=== PATIENT | male | born 1940 | race Caucasian/White ===

== ENCOUNTER → 2017-09-13 | Outpatient (CLI) | payer OTHER ==
[~2017-09-13] MED LIST: AEC81 PO; ATOR20TA65 PO; CARV6.25 PO; CHLO-204 PO; DOCU-116 PO; FINA5TAB41 PO; LOSA50TA37 PO; OMEP40CA37 PO; PRAV20TA4 PO; TAMS0.4C32 PO; TYL3 PO
== END | disposition home or self-care (01) ==
LOC: RAH 11:21
PROVIDERS: ATTEND Internal Medicine
DX: J44.9 Chronic obstructive pulmonary disease, unspecified (principal)
CPT/HCPCS: 71046

== ENCOUNTER → 2021-10-26 | Outpatient (CLI) | payer OTHER ==
[~2021-10-26] MED LIST changes: -LOSA50TA37 PO; +LOSA50TA64 PO; +OMEP40CA21 PO; -OMEP40CA37 PO
== END | disposition home or self-care (01) ==
LOC: SHCH 14:08
PROVIDERS: ATTEND Internal Medicine Cardiovascular Disease
DX: I48.0 Paroxysmal atrial fibrillation (principal); R55 Syncope and collapse; E78.5 Hyperlipidemia, unspecified; I10 Essential (primary) hypertension; Z95.810 Presence of automatic (implantable) cardiac defibrillator
CPT/HCPCS: 93306; 93880

== ENCOUNTER → 2022-10-14 | Outpatient (CLI) | payer OTHER | END | disposition home or self-care (01) | LOC: RAH 11:31 | DX: M17.12 Unilateral primary osteoarthritis, left knee (principal); I11.0 Hypertensive heart disease with heart failure; M25.562 Pain in left knee; M25.561 Pain in right knee; D64.9 Anemia, unspecified; M85.88 Other specified disorders of bone density and structure, other site; M11.262 Other chondrocalcinosis, left knee ==

== ENCOUNTER 2024-12-25 05:12 | Emergency (ER) | payer OTHER ==
[~2024-12-25] VITALS: Ht 160 cm; Wt 71.7 kg
--- NOTE | 2024-12-25 06:45 | NUR ---
patient reported no longer having pain to right arm or numbness to right hand at this time
[2024-12-25 07:00] LABS: CREATININE 1.3 mg/dL (0.5-1.3); POTASSIUM 4.2 mmol/L (3.5-5.1)
[2024-12-25 07:01] LABS: BASOPHILS # (AUTO) 0.03 K/uL (0.00-0.20); BASOPHILS % (AUTO) 0.6 % (0.0-5.0); EOSINOPHILS # (AUTO) 0.05 K/uL (0.00-0.70); EOSINOPHILS % (AUTO) 0.9 % (0.0-8.0); HEMATOCRIT 36.4 % (42-54); IMMATURE GRANULOCYTE ABSOLUTE 0.02 K/uL (0-1); LYMPHOCYTES # (AUTO) 1.1 K/uL (1.0-4.8); LYMPHOCYTES % (AUTO) 21.4 % (21.0-51.0); MEAN CORPUSCULAR HEMOGLOBIN 31.8 pg (27.0-33.0); MEAN CORPUSCULAR HGB CONC 32.7 g/dL (32.0-36.0); MEAN CORPUSCULAR VOLUME 97.3 fL (79-99); MONOCYTES # (AUTO) 0.5 K/uL (0.1-1.0); MONOCYTES % (AUTO) 9.3 % (3.0-13.0); NEUTROPHILS # (AUTO) 3.6 K/uL (1.8-7.7); NEUTROPHILS % (AUTO) 67.4 % (40.0-77.0); PLATELET COUNT (AUTO) 114 K/uL (130-400); RED BLOOD CELL COUNT(AUTO) 3.74 MIL/uL (4.50-6.20); RED CELL DISTRIBUTION WIDTH 13.2 % (11.0-15.5); WHITE BLOOD COUNT (AUTO) 5.3 K/uL (4.8-10.8)
--- NOTE | 2024-12-25 08:32 | ERN ---
General Chief Complaint: Numbness Stated Complaint: C/O NUMBNESS TO RT ARM/HAND Time Seen by MD: 07:07 Source: patient History of Present Illness Initial Comments PATIENT IS A AN 84-YEAR-OLD MALE COMING IN WITH A RIGHT UPPER ARM PAIN. PER PATIENT WOKE UP WITH DISCOMFORT IN HIS RIGHT FOREARM. HE STATES THAT THE PAIN WAS ACCOMPANIED WITH WEAKNESS THIS SYMPTOMS LASTED FOR ABOUT 1-2 MINUTES. HE STATES THAT SHORTLY AFTER THAT SYMPTOMS RESOLVED ON THEIR OWN. CAME IN DUE TO THE CONCERNS THAT SON VASCULAR COMPLICATION MIGHT BE PRESENT. Allergies: Coded Allergies: No Known Drug Allergies (Unverified Allergy, Unknown, 10/28/15) Home Meds Active Scripts Acetaminophen with Codeine (Tylenol with Codeine #3) 1 Tab Tab, 1 TAB PO Q6H, #30 TAB 0 Refills Prov:ANGELA SINGLETARY MD 01/14/16 Reported Medications Omeprazole (Omeprazole) 40 Mg Capsule.dr, 40 MG PO DAILY, CAP 01/12/16 Atorvastatin Calcium (Atorvastatin Calcium) 20 Mg Tablet, 20 MG PO HS, TAB 01/12/16 Carvedilol (Carvedilol) 6.25 Mg Tablet, 6.25 MG PO BID, TAB 01/12/16 Finasteride (Finasteride) 5 Mg Tablet, 0.5 TAB PO QODAY, TAB 01/12/16 Aspirin (ASPIRIN 81 MG ECTAB) 81 Mg Ectab, 81 MG PO DAILY, TAB.EC 10/28/15 Docusate Sodium (Colace) 100 Mg Capsule, 100 MG PO BID, CAP 10/28/15 Chlorpheniramine Maleate (Chlortabs) 4 Mg Tablet, 4 MG PO HS, TAB 10/28/15 Tamsulosin HCl (Tamsulosin HCl) 0.4 Mg Cap.er.24h, 0.4 MG PO HS, CAPSULE. 10/28/15 Losartan Potassium (Losartan Potassium) 50 Mg Tablet, 50 MG PO BID, TAB 10/28/15 Pravastatin Sodium (Pravastatin Sodium) 20 Mg Tablet, 20 MG PO HS, TAB 10/28/15 Past Medical History Past Medical History: Hypertension Past Surgical History: Unknown ROS Dictation CONSTITUTIONAL: NO CHILLS, NO FEVER, NO WEAKNESS, NO DIAPHORESIS, NO MALAISE. HEAD/FACE: NO SIGNS OF TRAUMA. EENT: NO EYE PAIN, NO BLURRED VISION, NO TEARING, NO DOUBLE VISION, NO EAR PAIN, NO EAR DISCHARGE, NO NOSE PAIN, NO NASAL CONGESTION, NO THROAT PAIN, NO THROAT SWELLING, NO MOUTH PAIN. RESPIRATORY: NO COUGH, NO ORTHOPNEA, NO SOB, NO STRIDOR, NO WHEEZING. CARDIOVASCULAR: NO CHEST PAIN, NO EDEMA, NO PALPITATIONS, NO SYNCOPE. GASTROINTESTINAL/ABDOMINAL: NO ABDOMINAL PAIN, NO CONSTIPATION, NO DIARRHEA, NO NAUSEA, NO VOMITING. GENITOURINARY: NO ABNORMAL DISCHARGE, NO DYSURIA, NO FREQUENT URINATION, NO HEMATURIA. NO COMPLAINTS OF PAIN IN THE GENITALS. MUSCULOSKELETAL: NO BACK PAIN, NO GOUT, NO JOINT PAIN, NO JOINT SWELLING, NO MUSCLE PAIN, NO MUSCLE STIFFNESS, NO NECK PAIN. INTEGUMENTARY: NO CHANGE IN COLOR, NO CHANGE IN HAIR/NAILS, NO DRYNESS, NO LESION, NO LUMPS, NO RASH. NEUROLOGICAL/PSYCH: NO ANXIETY, NOT DEPRESSED, NO EMOTIONAL PROBLEM, NO HEADACHE, NO NUMBNESS, NO PRE-EXISTING DEFICIT, NO HISTORY OF SEIZURES, NO TREMORS, NO WEAKNESS. HEMATOLOGIC/LYMPHATIC: NOT ANEMIC, NO HISTORY OF BLOOD CLOTS, NO APPARENT BLEEDING, NO BRUISING, GLANDS NOT SWOLLEN. ALL SYSTEMS NEGATIVE, EXCEPT NOTED. Physical Exam Physical Exam Dictation VITAL SIGNS: REVIEWED. GENERAL APPEARANCE: ALERT, ORIENTED X3, NO ACUTE DISTRESS, OBESE. HEAD AND FACE: NON-TRAUMATIC. EYES: PERRL, PINK CONJUNCTIVAS, EYELID NO TRAUMA, ANTERIOR CHAMBER CLEAR. EARS: PINNAS INTACT AND NO SIGNS OF TRAUMA OR ERYTHEMA. EAR CANALS CLEAR AND NO DISCHARGE. TMS NO ERYTHEMA. NOSE: NO DISCHARGE, NO BLEEDING. OROPHARYNX: MOUTH NORMAL, TEETH NO CARIES, TONGUE PINK. PHARYNX CLEAR, NO ERYTHEMA. TONSILS NO EXUDATES, NO ABSCESSES NOTED. MUCOUS MEMBRANE MOIST. NECK: SUPPLE, NON-TENDER, NO THYROMEGALY, NO MASSES, NO JVD, NO BRUITS. BREAST: DEFERRED. CHEST: NO TENDERNESS, NO CREPITUS, NO PARADOXICAL MOVEMENT, NO RETRACTIONS. LUNGS: CLEAR, WELL-VENTILATED, SYMMETRIC, NO RALES, NO WHEEZING, NO RHONCHI, NO STRIDOR, GOOD BREATH SOUNDS BILATERALLY. HEART: REGULAR RATE, REGULAR RHYTHM, NO MURMUR, NO GALLOPS. VASCULAR: NO PERIPHERAL EDEMA. ABDOMEN: SOFT, POSITIVE BOWEL SOUNDS, NONDISTENDED, NO GUARDING, NONTENDER, NO REBOUND, NO MASSES NO HEPATOMEGALY, NO SPLENOMEGALY, NO VASQUEZ'S SIGN, NO H ERNIAS. RECTAL: DEFERRED. GENITAL: DEFERRED. NEUROLOGICAL: NORMAL SPEECH, GROSS MOTOR FUNCTION INTACT, GROSS SENSORY FUNCTI ON INTACT. MUSCULOSKELETAL: NECK NONTENDER, FULL RANGE OF MOTION, BACK NONTENDER, FULL RANGE OF MOTION. EXTREMITIES: NONTENDER, FULL RANGE OF MOTION. SKIN: COLOR PINK, DRY, NO TURGOR, NO RASH, NO LACERATIONS, NO ABRASIONS, NO CONTUSIONS. LYMPHATICS: DEFERRED. Results Laboratory and Microbiology Lab and Micro Result Laboratory Tests Test 12/25/24 06:44 White Blood Count 5.3 K/uL (4.8-10.8) Red Blood Count 3.74 MIL/uL (4.50-6.20) L Hemoglobin 11.9 g/dL (14.0-18.0) L Hematocrit 36.4 % (42-54) L Mean Corpuscular Volume 97.3 fL (79-99) Mean Corpuscular Hemoglobin 31.8 pg (27.0-33.0) Mean Corpuscular Hemoglobin Concent 32.7 g/dL (32.0-36.0) Red Cell Distribution Width 13.2 % (11.0-15.5) Platelet Count 114 K/uL (130-400) L Mean Platelet Volume 10.5 fL (7.5-10.5) Immature Granulocyte % (Auto) 0.4 % (0-1) Neutrophils (%) (Auto) 67.4 % (40.0-77.0) Lymphocytes (%) (Auto) 21.4 % (21.0-51.0) Monocytes (%) (Auto) 9.3 % (3.0-13.0) Eosinophils (%) (Auto) 0.9 % (0.0-8.0) Basophils (%) (Auto) 0.6 % (0.0-5.0) Neutrophils # (Auto) 3.6 K/uL (1.8-7.7) Lymphocytes # (Auto) 1.1 K/uL (1.0-4.8) Monocytes # (Auto) 0.5 K/uL (0.1-1.0) Eosinophils # (Auto) 0.05 K/uL (0.00-0.70) Basophils # (Auto) 0.03 K/uL (0.00-0.20) Absolute Immature Granulocyte (auto 0.02 K/uL (0-1) Nucleated Red Blood Cells 0.0 % (0.0-0.19) Sodium Level 141 mmol/L (136-145) Potassium Level 4.2 mmol/L (3.5-5.1) Chloride Level 106 mmol/L (101-111) Carbon Dioxide Level 26 mmol/L (21-32) Blood Urea Nitrogen 25 mg/dL (7-18) H Creatinine 1.3 mg/dL (0.5-1.3) Glomerular Filtration Rate Calc 54 mL/min (>90) Random Glucose 86 mg/dL (70-105) Total Calcium 8.7 mg/dL (8.5-10.1) Labs Reviewed?: Yes MDM MDM: DIFFERENTIAL DIAGNOSIS: TENDONITIS, CELLULITIS, TEMPORARY PARALYSIS, ARM ASLEEP, NERVE COMPRESSION, TEMPORARY NERVE IRRITATION RATIONALE: TESTS CONSIDERED AND ORDERED SECONDARY TO SHARED DECISION MAKING INCLUDE: PREVIOUS OUTSIDE RECORDS REVIEWED: OLD ER VISITS. RISK OF COMPLICATION AND/OR MORBIDITY OR MORTALITY OF PATIENT MANAGEMENT: NONE PATIENT IS A AN 84-YEAR-OLD MALE COMING IN TO BE EVALUATED FOR RIGHT ARM PAIN. HE STATES THAT THE PAIN WAS TRANSIENT LASTING ABOUT 1-2 MINUTES ALONG WITH THIS PATIENT STATES THAT HE WAS NOT ABLE TO EXTEND HIS HAND. THESE SYMPTOMS RESOLVED ON THEIR OWN. LABORATORY WORKUP INCLUDING CT OF THE SPINE WERE NEGATIVE FOR ACUTE FINDINGS. THROUGHOUT ER VISIT PATIENT HAS BEEN STABLE. ON PHYSICAL EXAM PATIENT WAS ABLE TO MOVE SENSATION IS INTACT REFLEXES INTACT. I DID ADVISED HIM APPROPRIATE FOLLOW UP WITH PCP MEDICATION FOR MUSCULAR INFLAMMATION WILL BE PROVIDED. ED Course Orders Procedure Category Date Status Time Cbc With Differential LAB 12/25/24 Complete 06: Basic Metabolic Panel LAB 12/25/24 Complete 06: Ct Cervical Spine W/O CT 12/25/24 Taken Contrast 06:23 Vital Signs Date Time Temp Pulse Resp B/P (MAP) Pulse Ox O2 Delivery O2 Flow Rate FiO2 12/25/24 08:00 97.9 65 18 135/85 95 Room Air* 0 21 12/25/24 06:11 97.2 61 18 134/84 99 Room Air* 0 21 12/25/24 05:17 96.4 50 20 164/92 97 Room Air DX & DISP Disposition: Discharge Departure Impression: Primary Impression: Tendinitis Condition: Stable Scripts Diclofenac Sodium (Voltaren Arthritis Pain) 1 % Gel..gram. 4 GM TP BID for 7 Days, #1 TUBE Prov: CLIFFORD FABIAN MD 12/25/24 Additional Instructions: FOLLOW-UP WITH PRIMARY CARE PROVIDER IN 1 TO 2 DAYS. TAKE MEDICATIONS DIRECTED HERE IN THE EMERGENCY ROOM. OKAY TO CONTINUE HOME MEDICATIONS UNLESS OTHERWISE DISCUSSED DURING YOUR VISIT IN THE EMERGENCY ROOM TODAY. RETURN TO YOUR NEAREST EMERGENCY ROOM IF SYMPTOMS WORSEN OR IF THERE IS NO IMPROVEMENT. CALL 911 IF YOU NEED IMMEDIATE ASSISTANCE. TAKE TYLENOL [id number] NEEDED AND IF NO CONTRAINDICATIONS ARE PRESENT. INCREASE ORAL HYDRATION. A WOUND CULTURE OR URINE CULTURE WAS ORDERED HERE IN THE EMERGENCY ROOM DEPARTMENT PLEASE FOLLOW-UP WITH PRIMARY CARE PROVIDER AND ADVISE THEM TO GET REPEAT PORTS FROM OUR FACILITY. IF YOU HAD ANY JOLENE WRAP/SPLINTS THAT WERE APPLIED HERE, PLEASE DO NOT REMOVE THEM UNTIL YOU SEE YOUR PRIMARY CARE OR SPECIALTY. REFERRALS: Referrals: BRIGITTE COLEMAN MD (PCP) Time of Disposition: 08:48 CLIFFORD FABIAN MD Dec 25, 2024 08:32
[2024-12-25] MEDS ORDERED: DICL20GE TP (08:48)
--- NOTE | 2024-12-25 09:06 | HMCIMG ---
Exam Type: CT cervical spine without contrast Clinical Information: right upper extremeity numbness and tingling Comparison: None Technique: Spiral axial images were performed from the base of the skull down to the thoracic vertebral bodies. Both sagittal and coronal reconstructions were performed. CT Dose Index (CTDI): 12.85 mGy Dose Length Product (DLP): 282.6 total Findings: There are degenerative changes. Degenerative disc disease is noted at multiple levels. There is adequate alignment and preservation of normal cervial lordosis. There is facet hypertrophy at multiple levels. IMPRESSION: Degenerative changes as noted. No acute pathology. No fractures seen. This study was performed using dose reduction techniques to include automated exposure control and/or adjustment of the mA and/or kV according to patient size.
[2024-12-25 09:28] VITALS: BP 164/84; PULSE 56; RESP 18; TEMP 97.7; O2SAT 98
== END 2024-12-25 09:33 | disposition home or self-care (01) ==
LOC: EDH 05:12
DX: M77.9 Enthesopathy, unspecified (principal); I10 Essential (primary) hypertension; Z79.82 Long term (current) use of aspirin; Z79.899 Other long term (current) drug therapy
CPT/HCPCS: 36415; 72125; 80048; 85025; 99284

== ENCOUNTER → 2025-01-13 | Outpatient (CLI) | payer OTHER ==
[~2025-01-13] MED LIST changes: +DICL20GE TP
--- NOTE | 2025-01-13 10:47 | HMCIMG ---
Exam Type: US ABDOMINAL COMPLETE Clinical Information: abdominal distension (gaseous), also known as bloating Comparison: None Findings: The liver shows normal echogenicity and is otherwise unremarkable. The liver measures less than 16 cm in length. Doppler evaluation shows patent portal and hepatic veins. The gallbladder shows no significant abnormalities. Specifically, no calculi are seen. The gallbladder wall thickness is 2 mm. No bile duct dilatation is noted. The common bile duct measures 4 mm. The right kidney measures 9.5 x 4.9 cm. The left kidney measures 10.3 x 3 .9 cm. The kidneys are normal in size and echogenicity. No hydronephrosis or renal calculi are seen. There are no renal masses. The pancreas is unremarkable. The spleen is unremarkable. The aorta and inferior vena cava show no significant abnormalities. IMPRESSION: Normal exam.
== END | disposition home or self-care (01) ==
LOC: RAH 07:47
PROVIDERS: ATTEND Internal Medicine
DX: R14.0 Abdominal distension (gaseous) (principal); D69.6 Thrombocytopenia, unspecified
CPT/HCPCS: 76700

== ENCOUNTER 2025-02-18 03:49 | Inpatient (IN) | payer OTHER ==
[~2025-02-18] VITALS: Ht 157.5 cm; Wt 91.8 kg
[~2025-02-18 03:49] MED LIST changes: -PRAV20TA4 PO; +PRAV20TA59 PO
[2025-02-18 04:36] LABS: BASOPHILS # (AUTO) 0.03 K/uL (0.00-0.20); BASOPHILS % (AUTO) 0.4 % (0.0-5.0); EOSINOPHILS # (AUTO) 0.02 K/uL (0.00-0.70); EOSINOPHILS % (AUTO) 0.3 % (0.0-8.0); HEMATOCRIT 40.5 % (42-54); IMMATURE GRANULOCYTE ABSOLUTE 0.03 K/uL (0-1); LYMPHOCYTES # (AUTO) 1.7 K/uL (1.0-4.8); LYMPHOCYTES % (AUTO) 21.5 % (21.0-51.0); MEAN CORPUSCULAR HEMOGLOBIN 32.3 pg (27.0-33.0); MEAN CORPUSCULAR HGB CONC 33.1 g/dL (32.0-36.0); MEAN CORPUSCULAR VOLUME 97.6 fL (79-99); MONOCYTES # (AUTO) 0.6 K/uL (0.1-1.0); MONOCYTES % (AUTO) 7.8 % (3.0-13.0); NEUTROPHILS # (AUTO) 5.3 K/uL (1.8-7.7); NEUTROPHILS % (AUTO) 69.6 % (40.0-77.0); PLATELET COUNT (AUTO) 119 K/uL (130-400); RED BLOOD CELL COUNT(AUTO) 4.15 MIL/uL (4.50-6.20); RED CELL DISTRIBUTION WIDTH 13.5 % (11.0-15.5); WHITE BLOOD COUNT (AUTO) 7.7 K/uL (4.8-10.8)
[2025-02-18 04:46] LABS: POTASSIUM 4.5 mmol/L (3.5-5.1)
--- NOTE | 2025-02-18 04:57 | ERN ---
General Chief Complaint: Palpitations Stated Complaint: C/O PALPITATIONS WITH SOB Time Seen by MD: 04:28 Source: family History of Present Illness Initial Comments Patient is an 84-year-old male with a history of heart disease with a pacemaker who comes in because of worsening palpitations over the last 24 hours. Associated with the palpitations as a shortness of breath especially when he lies down. He does not have chest pain or any upper respiratory tract symptoms. No fevers no urinary or GI symptoms. Timing/Duration: 24 hours Severity: moderate Allergies: Coded Allergies: No Known Drug Allergies (Unverified Allergy, Unknown, 10/28/15) Home Meds Active Scripts Diclofenac Sodium (Voltaren Arthritis Pain) 1 % Gel..gram., 4 GM TP BID for 7 Days, #1 TUBE Prov:CLIFFORD FABIAN MD 12/25/24 Acetaminophen with Codeine (Tylenol with Codeine #3) 1 Tab Tab, 1 TAB PO Q6H, #30 TAB 0 Refills Prov:ANGELA SINGLETARY MD 01/14/16 Reported Medications Omeprazole (Omeprazole) 40 Mg Capsule.dr, 40 MG PO DAILY, CAP 01/12/16 Atorvastatin Calcium (Atorvastatin Calcium) 20 Mg Tablet, 20 MG PO HS, TAB 01/12/16 Carvedilol (Carvedilol) 6.25 Mg Tablet, 6.25 MG PO BID, TAB 01/12/16 Finasteride (Finasteride) 5 Mg Tablet, 0.5 TAB PO QODAY, TAB 01/12/16 Aspirin (ASPIRIN 81 MG ECTAB) 81 Mg Ectab, 81 MG PO DAILY, TAB.EC 10/28/15 Docusate Sodium (Colace) 100 Mg Capsule, 100 MG PO BID, CAP 10/28/15 Chlorpheniramine Maleate (Chlortabs) 4 Mg Tablet, 4 MG PO HS, TAB 10/28/15 Tamsulosin HCl (Tamsulosin HCl) 0.4 Mg Cap.er.24h, 0.4 MG PO HS, CAPSULE.DR 10/28/15 Losartan Potassium (Losartan Potassium) 50 Mg Tablet, 50 MG PO BID, TAB 10/28/15 Pravastatin Sodium (Pravastatin Sodium) 20 Mg Tablet, 20 MG PO HS, TAB 10/28/15 Past Medical History Past Medical History: Heart Disease, Hypertension Past Surgical History: Pacer/AICD Constitutional: (-) chills, (-) diaphoresis, (-) fever, (-) malaise, (-) weakness, (-) other documentation EENTM: (-) eye pain, (-) blurred vision, (-) tearing, (-) double vision, (-) ear pain, (-) ear discharge, (-) nose pain, (-) nose congestion, (-) throat pain, (-) Throat swelling, (-) mouth pain, (-) tooth pain, (-) mouth swelling, (-) other documentation Respiratory: (+) cough Cardiovascular: (-) chest pain, (-) edema, (-) palpitations, (-) syncope, (-) dyspnea on exertion, (-) other documentation Gastrointestinal/Abdominal: (-) nausea, (-) vomiting, (-) diarrhea, (-) abdominal pain, (-) abdominal distention, (-) constipation, (-) rectal bleeding, (-) dark stool/melena, (-) other documentation Musculoskeletal: (-) Neck pain, (-) back pain, (-) Flank Pain, (-) joint pain, (-) joint swelling, (-) muscle pain, (-) muscle stiffness, (-) gout, (-) other documentation Neuro: (-) altered mental status, (-) headache, (-) syncope, (-) paralysis, (-) numbness, (-) seizure, (-) pre-existing deficit, (-) tremors, (-) weakness, (-) dizziness, (-) slurred speech, (-) vertigo, (-) other documentation Physical Exam General Appearance: (+) no apparent distress Orientation: (+) alert Head/Face Trauma: No Eye: bilateral eye normal inspection, bilateral eye PERRL, bilateral eye EOMI Ear, Nose, Throat: (+) hearing grossly normal, (+) normal ENT inspection Neck: (+) normal inspection, (+) supple, (+) full range of motion Respiratory: (+) chest non-tender, (+) lungs clear, (+) well ventilated Heart: (+) regular, (+) no gallop Vascular: (+) no edema, (+) normal peripheral pulse Gastrointestinal: (+) soft, (+) non-tender, (+) bowel sound present Results Laboratory and Microbiology Lab and Micro Result Laboratory Tests Test 02/18/25 04:13 02/18/25 04:45 White Blood Count 7.7 K/uL (4.8-10.8) Red Blood Count 4.15 MIL/uL (4.50-6.20) L Hemoglobin 13.4 g/dL (14.0-18.0) L Hematocrit 40.5 % (42-54) L Mean Corpuscular Volume 97.6 fL (79-99) Mean Corpuscular Hemoglobin 32.3 pg (27.0-33.0) Mean Corpuscular Hemoglobin Concent 33.1 g/dL (32.0-36.0) Red Cell Distribution Width 13.5 % (11.0-15.5) Platelet Count 119 K/uL (130-400) L Mean Platelet Volume 11.0 fL (7.5-10.5) H Immature Granulocyte % (Auto) 0.4 % (0-1) Neutrophils (%) (Auto) 69.6 % (40.0-77.0) Lymphocytes (%) (Auto) 21.5 % (21.0-51.0) Monocytes (%) (Auto) 7.8 % (3.0-13.0) Eosinophils (%) (Auto) 0.3 % (0.0-8.0) Basophils (%) (Auto) 0.4 % (0.0-5.0) Neutrophils # (Auto) 5.3 K/uL (1.8-7.7) Lymphocytes # (Auto) 1.7 K/uL (1.0-4.8) Monocytes # (Auto) 0.6 K/uL (0.1-1.0) Eosinophils # (Auto) 0.02 K/uL (0.00-0.70) Basophils # (Auto) 0.03 K/uL (0.00-0.20) Absolute Immature Granulocyte (auto 0.03 K/uL (0-1) Nucleated Red Blood Cells 0.0 % (0.0-0.19) Sodium Level 142 mmol/L (136-145) Potassium Level 4.5 mmol/L (3.5-5.1) Chloride Level 106 mmol/L (101-111) Carbon Dioxide Level 29 mmol/L (21-32) Blood Urea Nitrogen 25 mg/dL (7-18) H Creatinine 1.0 mg/dL (0.5-1.3) Glomerular Filtration Rate Calc 74 mL/min (>90) Random Glucose 94 mg/dL (70-105) Total Calcium 8.9 mg/dL (8.5-10.1) Troponin I High Sensitivity 38 ng/L (4-75) B-Type Natriuretic Peptide 688 pg/mL (0-100) H Influenza Type A Antigen Negative For Type A Influenza Type B Antigen Negative For Type B SARS-CoV-2 Antigen (Rapid) PRESUMPTIVE NEGATIVE Group A Streptococcus Rapid negative (NEGATIVE) MDM MDM: Differential diagnosis: Atrial fibrillation, sinus tach, malfunctioning pacemaker electrolyte disturbances fluid overload, CHF Rationale: Tests considered and ordered secondary to shared decision making include: Previous outside records reviewed: Old ER visits. Risk of complication and/or morbidity or mortality of patient management: None Medications-Per medication reconciliation Need for hospitalization: Patient does meet criteria for hospitalization. Need for emergency major/minor surgery: No There are no social concerns with this patient. Prescription drug management Prescriptions will include symptomatic care Patient's prior external medical records from other ER visits were reviewed by me as indicated. Prior testing and results from previous visits were reviewed. Prior tests were taken into account with medical decision making and resource utilization, independent historian/historians were used to obtain complete medical history. I will obtain an EKG, plus a rhythm strip. I will also check a BNP troponins chemistry CBC chest x-ray. I independently interpreted the test that were performed, results were reviewed by me and considered findings on radiology if ordered. Patient's chest x-ray is showing a lot of excess fluid and infiltrates. His BNP is quite high. Also his cardiac rhythm seems to shift back and forth a variety of rhythms some of which appear paced some of which appear not to be a paced beat. I have called the hospitalist and they have agreed to take him onto their servic e. ED Course Orders Procedure Category Date Status Time 12 Lead Ekg Tracing- EKG 02/18/25 Complete Technical 04:02 Cbc With Differential LAB 02/18/25 Complete 04:08 Basic Metabolic Panel LAB 02/18/25 Complete 04:08 Troponin I High LAB 02/18/25 Complete Sensitivity 04:08 B-Type Natriuretic LAB 02/18/25 Complete Peptide 04:08 Chest 1vw RAD 02/18/25 Taken 04:08 12 Lead Ekg Tracing- EKG 02/18/25 Complete Technical 04:28 Covid19 (Sars Antigen LAB 02/18/25 Complete Rapid) 04:28 Influenza Type A & B, LAB 02/18/25 Complete Rapid 04:28 Rapid (Group A Strep) LAB 02/18/25 Complete 04:28 Vital Signs Date Time Temp Pulse Resp B/P (MAP) Pulse Ox O2 Delivery O2 Flow Rate FiO2 02/18/25 05:43 87 20 15/98 96 Room Air* 0 02/18/25 04:19 97.0 93 18 154/99 95 Room Air* 0 21 02/18/25 03:51 96.1 89 20 145/95 96 Room Air DX & DISP Disposition: Inpatient Departure Impression: Primary Impression: CHF (congestive heart failure) Condition: Stable Referrals: BRIGITTE COLEMAN MD (PCP) SELENA FARIRS MD Feb 18, 2025 04:57
[2025-02-18 05:01] LABS: B-TYPE NATRIURETIC PEPTIDE 688 pg/mL (0-100)
[2025-02-18 05:12] LABS: RAPID GROUP A STREP negative (NEGATIVE)
[2025-02-18 05:21] LABS: COVID19 (SARS ANTIGEN RAPID) PRESUMPTIVE NEGATIVE (NEGATIVE); INFLUENZA TYPE A Negative For Type A (NEGATIVE); INFLUENZA TYPE B Negative For Type B (NEGATIVE)
--- NOTE | 2025-02-18 06:32 | EKG ---
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
--- NOTE | 2025-02-18 06:32 | EKG ---
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
[2025-02-18] MEDS ORDERED: ZOLPidem TARTrate 5 MG TAB PO PRN (07:00)
[2025-02-18] MEDS ORDERED: ondanSETRON 4MG INJ IV PRN (07:00)
[2025-02-18] MEDS ORDERED: PoTASSium chloRIDE 20MEQ ER 20 MEQ ERTAB PO PRN (07:00)
[2025-02-18] MEDS ORDERED: morPHINE 2 MG SYG IVP PRN (07:00)
[2025-02-18] MEDS ORDERED: acetaMINOPHEN 325 MG TAB PO PRN ×3 (07:00)
[2025-02-18] MEDS ORDERED: ketOROlac 15MG/ML VIAL (15MG/ML) IV PRN (07:00)
[2025-02-18] MEDS ORDERED: DEXTROSE 50%-WATER 50 ML DISP.SYRIN IV PRN (07:00)
[2025-02-18] MEDS ORDERED: hydrALAZine 20MG/ML VIAL IV PRN (07:00)
[2025-02-18] MEDS ORDERED: PoTASSium chl 10% ELIXIR 20MEQ 20 MEQ/15 ML UDCUP PO PRN (07:00)
[2025-02-18] MEDS ORDERED: LACTULOSE 20 GM/30 ML UDCUP PO PRN (07:00)
[2025-02-18] MEDS ORDERED: PoTASSium chloRIDE 10MEQ/100ML 100 ML IV PRN (07:00)
[2025-02-18] MEDS ORDERED: NITROGLYCERIN 0.4 MG SL TAB SL PRN (07:00)
[2025-02-18] MEDS ORDERED: GLUCAGON 1MG KIT 1 MG ML IM PRN (07:00)
[2025-02-18] MEDS ORDERED: FAMOTIDINE 20MG VIAL IV PRN (07:00)
[2025-02-18] MEDS ORDERED: guaiFENesin-DM 200/20MG 10ML PO PRN (07:00)
[2025-02-18] MEDS ORDERED: MAG/ALUM/SIMETH 30 ML UDCUP PO PRN (07:00)
[2025-02-18] MEDS ORDERED: DiphenhydrAMINE HCL 50 MG/ML VIAL IV PRN (07:00)
[2025-02-18] MEDS ORDERED: MONT-39 PO (07:20)
[2025-02-18] MEDS ORDERED: LOSA100T59 PO (07:20)
[2025-02-18] MEDS ORDERED: LORA10TA7 PO (07:20)
[2025-02-18] MEDS: INSULIN humuLIN R 100 UNIT/ML 3ML SQ SCH (07:30)
[2025-02-18] MEDS ORDERED: IOHEXOL-350 75 ML VIAL IV ONE (08:22)
--- NOTE | 2025-02-18 08:38 | NUR ---
CALLED AND SPOKE TO KAYLA FROM [employer] FOR INTEROGATION OF DEVICE, STATED HE WILL CALL NEARBY REP, PATIENT RESTING IN BED, CALL LIGHT IN REACH
[2025-02-18] MEDS: HEParin 5,000 UNIT VIAL SQ SCH (08:56)
[2025-02-18] MEDS: FAMOTIDINE 20MG VIAL IV SCH (08:56)
[2025-02-18] MEDS: furoSEMIDE 40MG VIAL IVP SCH (08:59)
--- NOTE | 2025-02-18 09:25 | NUR ---
DCP: HOME Pt states he is living independently at home with his Kiara Terry [phone]. Pt reports he is able to complete his ADLS on his own, is active and drives, uses no DME or in home care services. PCP is Margarette Sims and uses [facility] for rx needs. Pt denies dc needs and will return home at [place]n. Addendum: 02/18/25 at 0927 by NICHOLE NOEL SS Amended: Links added.
--- NOTE | 2025-02-18 10:06 | HMCIMG ---
CT CHEST PE PROTOCOL WWO CONT HISTORY: Pulmonary embolism COMPARISON: None TECHNIQUE: CT angiography of the chest was performed. The study was performed using angiographic technique with maximum intensity projection reconstruction images. Patient was given 75 cc of Omnipaque through intravenous route. FINDINGS: No CT evidence of filling defect is seen to suggest pulmonary embolus. No CT evidence of aortic dissection is seen. No evidence of parenchymal disease is seen. There are small bilateral pleural effusions with right more than left. The heart is enlarged. No evidence of adrenal mass is seen. Degenerative changes of the spine are noted. IMPRESSION: 1. No CT evidence of acute pulmonary embolus is seen. Small bilateral pleural effusions with right more than left. CT was performed with one or more following dose reduction techniques: automated exposure control, adjustment of the mA and kv according to patient's size, or use of a iterative reconstruction technique.
--- NOTE | 2025-02-18 11:16 | NUR ---
HOME MEDS ENTERED, PATIENT STATED ONLY 1 MISSING WAS CARVEDILOL 6.25MG PO PATIENT RESTING IN BED, CALL LIGHT IN REACH
--- NOTE | 2025-02-18 11:57 | NUR ---
PATIENT STATES HE IS NOT DIABETIC
[2025-02-18] MEDS: carVEDIlol 6.25 MG TABLET PO SCH (12:04)
--- NOTE | 2025-02-18 12:09 | CONS ---
[facility] CARDIOLOGY CONSULTATION REPORT Date Patient Seen: Feb 18, 2025 Time of Visit: 11:46 Requesting Physician: Karl Lopez MD Reason for Consultation: CHF, assess for malfunction of AICD History of Present Illness: This is an 84-year-old [place] male with a past medical history of hypertension, hyperlipidemia, BPH, normal coronary arteries by prior cardiac catheterization 2015, chronic left bundle branch block, and nonischemic cardiomyopathy with an LVEF of 35-40% by prior assessment, prior [place] [employer] AICD placement in 2015 (pacemaker dependent), paroxysmal atrial fibrillation currently not on anticoagulation (unclear reasons) presented to the emergency department with a 4 day history of 2 pillow orthopnea and PND in ad dition he was having dyspnea on exertion with the associated palpitations at less than 50 ft of ambulation. He denies any chest pain or pressure, denied any dizziness, near-syncope or syncope. He admits that he has been out of his carvedilol (carvedilol 6.25 mg p.o. b.i.d.) over the last 3 days. He also reports he has not been on any diuretic therapy in the past. He was recently re-evaluated at the office of Dr. Collado 01/08/2025 after several years of being absent from cardiology follow-up. During that visit, he was prescribed Xarelto but the patient does not recall this medication. In the emergency department, his EKG demonstrated a ventricular paced rhythm with underlying atrial fibrillation at a rate of 92 beats per minute. His BNP was 688. D-dimer was [address] scan of the chest PE protocol demonstrated no evidence of pulmonary embolism. There were bilateral pleural effusions right greater than left. In addition, his chest x-ray also demonstrated prior AICD placement and CHF changes. Cardiology consult was requested. He has been initiated on an IV Lasix diuresis and has already diuresed over 1 L since arriving to the ER. He denies any AICD firings. The patient also noticed at recently he would become more fatigue with his work-related activities (they have a [employer] business), with associated dyspnea and intermittent palpitations. Past Medical History: Nonischemic cardiomyopathy Normal coronary arteries by prior catheterization 2015 Chronic left bundle branch block [place] [employer] biventricular AICD placed in 2015 Pacemaker dependent Paroxysmal atrial fibrillation previously on Xarelto 2D echocardiogram October 2021 LVEF of 35-40% 01/08/2025 Hypertension Hyperlipidemia BPH Allergic rhinitis Past Surgical History: Bilateral cataract extraction Bilateral inguinal hernia repair and umbilical hernia repair Family History: Noncontributory Social History: The patient is . Lives with spouse. 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 Habits: Non smoker. Denies alcohol consumption. Denies illicit drug use Home Meds: Clonazepam ? dos, half a tablet daily Losartan 100 mg daily Aspirin 81 mg daily Atorvastatin 20 mg daily Finasteride 5 mg daily Montelukast 10 mg daily Tamsulosin 0.4 mg daily Review of Systems: CONST: No fever, fatigue, or weight changes. EYES: No recent vision problems. ENT: No congestion, ear pain, or sore throat. C/V: Positive for orthopnea, PND and palpitations. No chest pain, pressure, dizziness, near-syncope or syncope. No pedal edema. RESP: No cough, congestion, wheezing or shortness of breath. GI: No abdominal pain, nausea, vomiting, constipation, or diarrhea. : No incontinence or dysuria. SKIN: No rash. NEURO: No headache, focal numbness or weakness, dizziness, or seizures. PSYCH: No depression or anxiety. HEME: No abnormal bruising or bleeding. LYMPH: No swollen glands. Physical Examination: GENERAL: No acute distress. HEAD: Normal with no signs of head trauma. EYES: PERRLA, EOMI, conjunctiva and sclera normal. ENT: Hearing grossly intact, normal oropharynx. NECK: Supple without JVD. There is no tenderness, lymphadenopathy, or masses. No thyromegaly. Normal carotid upstrokes without bruits. LUNGS: Rales and Diminished breath sounds at the right base, no audible wheezing or rhonchi. HEART: Irregularly irregular underlying rhythm. Normal S1 and S2 without murmurs, gallop or rub. VASC: Peripheral pulses +2 bilaterally. ABD: Bowel sounds normal, soft, nontender, no masses, no organomegaly. No audible bruits. : Not examined LYMPH: No lymphadenopathy noted. EXT: No clubbing, cyanosis or edema. SKIN: No rashes or lesions noted. NEURO: Awake, alert, and oriented x3. No focal sensory or strength deficits noted. Vital Signs (last 8hr) Date Time Temp Pulse Resp B/P (MAP) Pulse Ox O2 Delivery O2 Flow Rate FiO2 02/18/25 07:08 97.7 90 18 148/97 96 Room Air* 0 02/18/25 05:43 87 20 150/98 96 Room Air* 0 02/18/25 04:19 97.0 93 18 154/99 95 Room Air* 0 02/18/25 03:51 96.1 89 20 145/95 96 Room Air Laboratory: Hematology Labs: Test 02/18/25 04:13 Range/Units White Blood Count 7.7 4.8-10.8 K/uL Red Blood Count 4.15 L 4.50-6.20 MIL/uL Hemoglobin 13.4 L 14.0-18.0 g/dL Hematocrit 40.5 L 42-54 % Mean Corpuscular Volume 97.6 79-99 fL Mean Corpuscular Hemoglobin 32.3 27.0-33.0 pg Mean Corpuscular Hemoglobin Concent 33.1 32.0-36.0 g/dL Red Cell Distribution Width 13.5 11.0-15.5 % Platelet Count 119 L 130-400 K/uL Mean Platelet Volume 11.0 H 7.5-10.5 fL Immature Granulocyte % (Auto) 0.4 0-1 % Neutrophils (%) (Auto) 69.6 40.0-77.0 % Lymphocytes (%) (Auto) 21.5 21.0-51.0 % Monocytes (%) (Auto) 7.8 3.0-13.0 % Eosinophils (%) (Auto) 0.3 0.0-8.0 % Basophils (%) (Auto) 0.4 0.0-5.0 % Neutrophils # (Auto) 5.3 1.8-7.7 K/uL Lymphocytes # (Auto) 1.7 1.0-4.8 K/uL Monocytes # (Auto) 0.6 0.1-1.0 K/uL Eosinophils # (Auto) 0.02 0.00-0.70 K/uL Basophils # (Auto) 0.03 0.00-0.20 K/uL Absolute Immature Granulocyte (auto 0.03 0-1 K/uL Nucleated Red Blood Cells 0.0 0.0-0.19 % Chemistry Labs: Test 02/18/25 07:47 02/18/25 04:13 Range/Units Whole Blood Glucose 89 70-110 MG/DL Sodium Level 142 136-145 mmol/L Potassium Level 4.5 3.5-5.1 mmol/L Chloride Level 106 101-111 mmol/L Carbon Dioxide Level 29 21-32 mmol/L Blood Urea Nitrogen 25 H 7-18 mg/dL Creatinine 1.0 0.5-1.3 mg/dL Glomerular Filtration Rate Calc 74 >90 mL/min Random Glucose 94 70-105 mg/dL Total Calcium 8.9 8.5-10.1 mg/dL Troponin I High Sensitivity 38 4-75 ng/L B-Type Natriuretic Peptide 688 H 0-100 pg/mL Coagulation Labs: Test 02/18/25 04:13 Range/Units D-Dimer Quantitative (PE/DVT) 1989 *H 0-500 ng/mL Diagnostics / Radiology: CT CHEST PE PROTOCOL WWO CONT 02/18/2025: HISTORY: Pulmonary embolism FINDINGS: No CT evidence of filling defect is seen to suggest pulmonary embolus. No CT evidence of aortic dissection is seen. No evidence of parenchymal disease is seen. There are small bilateral pleural effusions with right more than left. The heart is enlarged. No evidence of adrenal mass is seen. Degenerative changes of the spine are noted. IMPRESSION: 1. No CT evidence of acute pulmonary embolus is seen. Small bilateral pleural effusions with right more than left. Impression and Plan: Acute on chronic HFrEF (LVEF 35-40% 10/26/2021): Nonischemic cardiomyopathy, status post prior [place] [employer] AICD placement 2016: -agree with an IV Lasix diuresis -begin Jardiance 10 mg p.o. daily -await results of follow-up 2D echocardiogram -resume carvedilol 6.25 mg p.o. b.i.d. -transition losartan to Entresto 24/26 mg p.o. b.i.d. -await interrogation of his AICD, the patient appears to be V pacing on all tracings with underlying atrial fibrillation. He may benefit from upgrade to a Bi-V AICD. Paroxysmal atrial fibrillation, question now permanent: Chronic left bundle branch block: Pacemaker dependent: -interrogate [employer] [place] [employer] AICD to assess atrial fibrillation burden -the patient recently ran out of his carvedilol 3 days ago and this will be resumed at 6.25 mg p.o. b.i.d. -there appears to be no bleeding complications or contraindications to an ticoagulation -for now begin Lovenox 70 mg subQ q.12 hours with plans to transition to Eliquis 5 mg p.o. b.i.d. (currently does not meet criteria for dose adjustment) Comorbidities: Normal coronary arteries by prior catheterization 2015 Hypertension Hyperlipidemia BPH Allergic rhinitis PHYSICIAN ATTESTATION OF PHYSICIAN SALES REPRESENTATIVE [facility] DOCUMENTATION: I attest that I was physically present for the daniels portions of the service and evaluated the patient with the Physician Business Risk Consultant, and I reviewed and discussed the case with the Physician Business Risk Consultant and made modifications to the Physician Business Risk Consultant's findings and plans of care as documented above AFSHAN BACH Feb 18, 2025 12:09 ABHINAV ACE MD Feb 18, 2025 19:02
--- NOTE | 2025-02-18 12:17 | HMCIMG ---
CHEST 1VW HISTORY: Shortness of breath COMPARISON: 09/13/2017 FINDINGS: A frontal projection of the chest was obtained. Mild bilateral pulmonary infiltrates are seen may be related to mild pulmonary vascular congestion with possible superimposed pneumonitis. The heart is borderline enlarged. Pacemaker is seen entering from the left. Aortic calcifications are seen. IMPRESSION: 1. Mild bilateral pulmonary infiltrates are seen may be related to mild pulmonary vascular congestion with possible superimposed pneumonitis.
[2025-02-18] MEDS: SACUBITRIL/VALSARTAN 1 EACH TABLET PO SCH (12:30)
--- NOTE | 2025-02-18 15:13 | HP ---
[facility] HISTORY AND PHYSICAL Date of Service: Feb 18, 2025 Time of Service: 15:03 Admitting: Dr Lopez, Allergies: No Allergy Information Available, No Known Drug Allergies HISTORY OF PRESENT ILLNESS: [ Patient is84 years old male with a past medical history of hypertension, hyperlipidemia, BPH, cardiac catheterization 2015, nonischemic cardiomyopathy with EF of35 to 40% prior assessment, AICD placement 2016, paroxysmal AFib not on any anticoagulation medication, who came to emergency department with a complaint of shortness of breaths for the past four days. Patient was also complaining of having some dyspnea on exertion with palpitations. Patient denies any chest pain, nausea, dizziness, vomiting, near syncope or syncope episodes. Patient also stated that he does not have anymore off his carvedilol medicine so for approximately 3 to 4 days he has has not been taking his pills. In the emergency department patient's EKG demonstrated ventricle paced rhythm with underlying AFib. BNP 688. D-dimer was [address] scan PE chest protocol which was negative for pulmonary embolism. Chest x-ray demonstrated prior AICD placement and CHF changes. Consultation cardiology was requested and patient was already seen by Dr. Collado's HOME SUPERVISOR Most recent vital signs temperature 98.4 pulse 87 respiration 18 blood pressure 100/67. Patient is on room air satting 96%. WBC 7.7 Hemoglobin 13.4 hematocrit 40.5 platelets 119 [id number] potassium 4.5 CO2 29 BUN25 creatinine 1.0 [id number] random glucose 94 troponin negative x1 BNP 680 Patient will be admitted under hospitalist care for further evaluation/recommendation. A.m. lab] REVIEW OF SYSTEMS CONSTITUTIONAL: Denies fevers, chills, or night sweats. No unintentional weight loss reported. NEUROLOGICAL: Denies headache, amaurosis fugax, motor weakness, sensory deficit, vertigo/spinning sensation, gait abnormalities, or tremors. ENT: No hearing loss, otalgia, otorrhea, rhinitis, rhinorrhea, hoarseness, or sore throat. CARDIOVASCULAR: Denies any exertional angina, dyspnea on exertion, orthopnea, paroxysmal nocturnal dyspnea, palpitations, life-threatening arrhythmias, claudication. PULMONARY: Denies any , cough, phlegm/sputum, hemoptysis, pleuritic chest pain. Complains of shortness of breaths SLEEP: Denies morning headaches, daytime somnolence or napping. Denies difficulty falling asleep, staying asleep, waking from sleep. Denies knowledge of snoring. GASTROINTESTINAL: Denies any type of dysphagia to either liquids or solids. Denies nausea, vomiting, pyrosis, early satiety, abdominal pain, diarrhea, cons tipation, or changes in stool consistency or caliber. Denies coffee-ground emesis, hematemesis, hematochezia, or melanotic stools. GENITOURINARY: Denies frequency, urgency, nocturia, hematuria or incontinence (Storage/Irritative symptoms.) Low urinary stream, straining to void, urinary intermittency or hesitancy, splitting of the voiding stream, terminal dribbling. ENDOCRINOLOGIC: Denies polyuria, polydipsia, polyphagia or heat/cold intolerances. HEMATOLOGIC: Denies thrombophilia/previous clots, or coagulopathy/bleeding disorders. ONCOLOGIC: Denies personal history of malignancy. DERMATOLOGIC: Denies rashes or pruritus. PSYCHIATRIC: Denies any suicidal or homicidal ideation. Denies hallucinations. PAST MEDICAL HISTORY: [ Nonischemic cardiomyopathy Normal coronary arteries by prior catheterization 2016 Chronic left bundle branch block [place] [employer] biventricular AICD placed in 2016 Pacemaker dependent Paroxysmal atrial fibrillation previously on Xarelto 2D echocardiogram October 2021 LVEF of 35-40% 01/08/2025 Hypertension Hyperlipidemia BPH Allergic rhinitis ] PAST SURGICAL HISTORY: [ Bilateral cataract extraction Bilateral inguinal hernia repair and umbilical hernia repair] PAST SOCIAL HISTORY: [ The patient is . Lives with spouse. 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 Non smoker. Denies alcohol consumption. Denies illicit drug use] FAMILY HISTORY: [ Noncontributory ] Coded Allergies: No Known Drug Allergies (Unverified Allergy, Unknown, 10/28/15) PHYSICAL EXAM GENERAL APPEARANCE: The patient is awake, alert, and oriented, in no acute cardiopulmonary distress. NEUROLOGICAL: Cranial nerves II-XII grossly intact. Motor is 5/5 in bilateral upper and lower extremities proximal to distal. No sensory deficits. HEENT: Face is symmetric. Pupils are equal and reactive. Extraocular movements are intact. NECK: Supple. No JVD. No thyromegaly. No submental, submandibular, pre-/pos tauricular, occipital or supraclavicular lymphadenopathy. CHEST: Normal chest expansion. No Telemetry. LUNGS: Absence of any rales, rhonchi or any wheezing. CARDIOVASCULAR: Regular. S1 and S2 normal. No appreciable rubs, murmurs or gallops. ABDOMEN: Soft, nontender, and nondistended. There is no rebound, voluntary guarding, or rigidity. : Deferred. No [place]. EXTREMITIES: Non-edematous and not cyanotic. No clubbing. Good capillary refill. SKIN: No skin breakdown. Vital Sign (Last 24 Hours) 02/18/25 13:56 Temp 98.4 Pulse 87 Resp 12 B/P (MAP) 100/67 Pulse Ox 96 O2 Delivery Room Air* O2 Flow Rate 0 FiO2 21 LABS: Laboratory: Test 02/18/25 12:03 02/18/25 04:45 02/18/25 04:13 Range/Units Whole Blood Glucose 96 70-110 MG/DL Influenza Type A Antigen Negative For Type A NEGATIVE Influenza Type B Antigen Negative For Type B NEGATIVE SARS-CoV-2 Antigen (Rapid) PRESUMPTIVE NEGATIVE NEGATIVE Group A Streptococcus Rapid negative NEGATIVE White Blood Count 7.7 4.8-10.8 K/uL Red Blood Count 4.15 L 4.50-6.20 MIL/uL Hemoglobin 13.4 L 14.0-18.0 g/dL Hematocrit 40.5 L 42-54 % Mean Corpuscular Volume 97.6 79-99 fL Mean Corpuscular Hemoglobin 32.3 27.0-33.0 pg Mean Corpuscular Hemoglobin Concent 33.1 32.0-36.0 g/dL Red Cell Distribution Width 13.5 11.0-15.5 % Platelet Count 119 L 130-400 K/uL Mean Platelet Volume 11.0 H 7.5-10.5 fL Immature Granulocyte % (Auto) 0.4 0-1 % Neutrophils (%) (Auto) 69.6 40.0-77.0 % Lymphocytes (%) (Auto) 21.5 21.0-51.0 % Monocytes (%) (Auto) 7.8 3.0-13.0 % Eosinophils (%) (Auto) 0.3 0.0-8.0 % Basophils (%) (Auto) 0.4 0.0-5.0 % Neutrophils # (Auto) 5.3 1.8-7.7 K/uL Lymphocytes # (Auto) 1.7 1.0-4.8 K/uL Monocytes # (Auto) 0.6 0.1-1.0 K/uL Eosinophils # (Auto) 0.02 0.00-0.70 K/uL Basophils # (Auto) 0.03 0.00-0.20 K/uL Absolute Immature Granulocyte (auto 0.03 0-1 K/uL Nucleated Red Blood Cells 0.0 0.0-0.19 % D-Dimer Quantitative (PE/DVT) 1989 *H 0-500 ng/mL Sodium Level 142 136-145 mmol/L Potassium Level 4.5 3.5-5.1 mmol/L Chloride Level 106 101-111 mmol/L Carbon Dioxide Level 29 21-32 mmol/L Blood Urea Nitrogen 25 H 7-18 mg/dL Creatinine 1.0 0.5-1.3 mg/dL Glomerular Filtration Rate Calc 74 >90 mL/min Random Glucose 94 70-105 mg/dL Total Calcium 8.9 8.5-10.1 mg/dL Troponin I High Sensitivity 38 4-75 ng/L B-Type Natriuretic Peptide 688 H 0-100 pg/mL Current Medications Medications (Trade) Dose Ordered Sig/Segundo Route PRN Reason Start Time Stop Time Status Last Admin Dose Admin Acetaminophen (TYLenol 325MG TAB) 650 mg Q4H PRN PO MILD PAIN (1-3) 02/18/25 07:00 03/20/25 06:59 Acetaminophen (TYLenol 325MG TAB) 650 mg Q6H PRN PO MILD PAIN (1-3) 02/18/25 07:00 02/18/25 07:03 DC Acetaminophen (TYLenol 325MG TAB) 650 mg Q6H PRN PO TEMPERATURE GREATER THAN 101.5 02/18/25 07:00 03/20/25 06:59 Al Hydroxide/Mg Hydroxide (MAALox PLUS 30ML) 30 ml Q6H PRN PO INDIGESTION 02/18/25 07:00 03/20/25 06:59 Carvedilol (Coreg 6.25MG) 6.25 mg BID PO 02/18/25 12:00 03/20/25 11:59 02/18/25 12:04 6.25 MG Dextrose (D50w) 50 ml AD PRN IV HYPOGLYCEMIA PROTOCOL 02/18/25 07:00 03/20/25 06:59 Diphenhydramine HCl (BENAdryl INJ) 25 mg Q6H PRN IV SEVERE ITCHING/RASH 02/18/25 07:00 03/20/25 06:59 Empaglifozin (Jardiance 10mg) 10 mg DAILY PO 02/19/25 09:00 03/21/25 08:59 Enoxaparin Sodium (Lovenox 80mg) 70 mg BID SQ 02/18/25 21:00 03/20/25 20:59 Famotidine (Pepcid 20mg Vial) 20 mg BID PRN IV NAUSEA/VOMITING 02/18/25 07:00 02/18/25 07:03 DC Famotidine (Pepcid 20mg Vial) 20 mg DAILY IV 02/18/25 09:00 03/20/25 08:59 02/18/25 08:56 20 MG Furosemide (LASix 40MG VIAL) 40 mg BID IVP 02/18/25 09:00 03/20/25 08:59 02/18/25 08:59 40 MG Glucagon (Glucagon 1mg Kit) 1 mg AD PRN IM HYPOGLYCEMIA PROTOCOL 02/18/25 07:00 03/20/25 06:59 Guaifenesin/ Dextromethorphan (RobiTUSSin DM 200/20MG 10ML) 10 ml Q4H PRN PO COUGH 02/18/25 07:00 03/20/25 06:59 Heparin Sodium (Porcine) (HEParin 5,000 UNIT VIAL) 5,000 unit BID SQ 02/18/25 09:00 02/18/25 11:46 DC 02/18/25 08:56 5,000 UNIT Hydralazine HCl (APRESOLine 20MG INJ) 10 mg Q6H PRN IV For:SBP above 160;DBP above 90 02/18/25 07:00 03/20/25 06:59 Insulin Human Regular (humuLIN R 100 UNIT/ML 3ML) INSULIN SLIDING SCAL... ACHS SQ 02/18/25 07:30 03/20/25 07:29 Ketorolac Tromethamine (toRADol) 15 mg Q8H PRN IV MODERATE PAIN (4-6) 02/18/25 07:00 02/23/25 06:59 Lactulose (Constulose 20gm/ 30ml Udcup) 20 gm BID PRN PO CONSTIPATION 02/18/25 07:00 03/20/25 06:59 Magnesium Sulfate 50 ml @ 0 mls/hr PROTOCOL PRN IV other 02/18/25 07:00 03/20/25 06:59 Morphine Sulfate (morPHINE 2MG SYG) 1 mg Q4H PRN IVP SEVERE PAIN (7-10) 02/18/25 07:00 02/25/25 06:59 Nitroglycerin (Nitrostat) 0.4 mg PROTOCOL PRN SL CHEST PAIN 02/18/25 07:00 03/20/25 06:59 Ondansetron HCl (zoFRAN 4MG INJ) 4 mg Q6H PRN IV NAUSEA/VOMITING 02/18/25 07:00 03/20/25 06:59 Potassium Chloride 100 ml @ 100 mls/hr AD PRN IV POTASSIUM PROTOCOL 02/18/25 07:00 03/20/25 06:59 Potassium Chloride (K-Dur/Klor-Con 20meq) 10 meq AD PRN PO POTASSIUM PROTOCOL 02/18/25 07:00 03/20/25 06:59 Potassium Chloride (KCl 10% Elixir 20meq/15ml) 10 meq AD PRN PO POTASSIUM PROTOCOL 02/18/25 07:00 03/20/25 06:59 Sacubitril/ Valsartan (Entresto 24 Mg-26 Mg Tablet) 1 each BID PO 02/18/25 12:30 03/20/25 12:29 Zolpidem Tartrate (AmbIEN) 5 mg HS PRN PO INSOMNIA 02/18/25 07:00 03/20/25 06:59 DIAGNOSTICS / RADIOLOGY: [ ] ASSESSMENT: [ Acute on chronic systolic and diastolic congestive heart failure HFrEF (LVEF 35-40% 10/26/2021) POA Nonischemic cardiomyopathy, status post prior [place] [employer] AICD placement 2016 POA Paroxysmal atrial fibrillation POA Acute dehydration POA Chronic left bundle branch block POA Pacemaker dependent POA Multifactorial anemia POA Normal coronary arteries by prior catheterization 2016 Uncontrolled Hypertension POA Hyperlipidemia POA BPH POA Allergic rhinitis] PLAN: [ Admit to: Medical-surgical floor with tele Consults: Pompom Maker Antibiotics: None Tests: ED eight 2D echo pending NEURO: Minimize central acting medications as possible. Fall Precautions. Well lighted room through the day and minimize interruptions through the night to prevent acute delirium. PULMONARY: Chest x-ray bilateral pulmonary infiltrate pneumonitis CT chest negative PE Supplemental 02 as needed BiPAP as necessary, for respiratory distress Titrate Fio2 to keep Spo2 > or = 90% DuoNebs and CPT as needed IS hourly while awake for pulmonary hygiene Out of bed to chair as tolerated VAP Bundle Maintain aspiration precautions at all times CARDIOVASCULAR: 2D echo pending Pending cardiology sedation Follow hemodynamics. Vital signs per facility protocol GI & NUTRITION: Continue nutritional support Aspirations precautions Prokinetic agents and laxatives as needed KIDNEYS & ELECTROLYTES: Strict monitoring of intake and output Daily weights Avoid nephrotoxic agents Monitor electrolytes and replace as needed Goal urine output of 30mL/hr or 0.5mL/kg/hr Medications to be dosed according to renal function. Avoid contrast if possible ENDOCRINE: Maintain blood glucose between 100-180 at all times. Insulin sliding scale for blood glucose management Hypoglycemia and hyperglycemia protocol in place INFECTIOUS DISEASE: Trend temperature, WBC and procalcitonin level Follow cultures, deescalate antibiotics as soon as possible. Panculture if new onset fever HEMATOLOGY & COAGULATION: Monitor H&H. Keep Hgb > 7 Transfuse 1 unit of PRBC for Hgb < 7 Transfuse 1 pack of platelets of platelets < 20, 000 Watch for any signs and symptoms of bleeding SKIN: Pressure ulcer prevention per facility protocol Specialty mattress as needed Treatment plan discussed with patient and family at the bedside Medications to be reconciled once obtained by patient and/or family and avail able to be reconciled in computer p.r.n. medication for pain nausea and vomiting Questions were answered We will continue to monitor the patient closely Small Equipment Operator for disposition Rehab: PT/OT GI: PPI DVT: SCD's Code Status: Full Resuscitation Disposition: TBD Prognosis: Guarded] ADVANCED CARE PLANNING 1. Which of the following were discussed? Hospice Care - Yes / No Therapeutic options - Yes / No Advance Directives - Yes / No Other discussions - 2. Discussed with who? Patient 3. Voluntary nature of this service was explained to the patient? Yes / No 4. Amount of time spent - ___ more than35 minutes ____ 5. Reviewed by Physician? (if this service was performed by NPP) Yes / No ATTESTATION BY PHYSICIAN I have seen and examined the patient. I reviewed the documentation, medical decision making, and treatment plan as noted by the mid-level provider above. I agree with the findings and plan of care. LEON LOPEZ MD, KATARZYNA B WARP TYING MACHINE TENDER Feb 18, 2025 15:13
[2025-02-18] MEDS: ENOXAPARIN SODIUM 80 MG/0.8 ML SQ SCH (20:13)
--- NOTE | 2025-02-18 20:53 | HMCSR ---
APPROVED REPORT EXAM: Two-dimensional and M-mode echocardiogram with Doppler and color Doppler. INDICATION ICD: Heart Failure 2D Dimensions RVDd3.6 cmLVEF(%)20.7 (>50%)LVED Vol(simp.)147.0 mL IVSd0.7 (0.7-1.1cm)FS(%)10 %LVES Vol(simp.)103.0 mL LVDd5.5 (3.8-5.6cm)LA (2D)3.8 (1.6-4.0cm)LVEF(%, simp.)30 % PWd0.9 (0.7-1.1cm)Ao Root(2D)3.3 (2.0-3.7cm)LA ESV INDEX (BP)52.67 mL/m2 LVDs5.0 (2.5-4.0cm)LVOT diam2.4 (1.8-2.4cm) IVC diam2.3 cm Deformation Strain Apical 4-5.3 % Apical 2-7.1 % Apical 3-3.0 % Global Strain-5.1 % M-Mode Dimensions EPSS1.7 cm LA (MM)4.7 (1.6-4.0cm) Ao Root(MM)3.2 (2.0-3.7cm) Aortic Valve AoV Vmax1.0 m/Jana Peak GR3.7 mmHgLVOT Vmax0.7 m/s AoV VTI0.2 mAo Mean GR2.0 mmHgLVOT VTI0.13 m GILLIAN (VMAX)3.41 cm2AVA (VTI) 3.4 cm2 Mitral Valve MV E Vmax85.4 cm/sDECEL Jovt043 ms MV A Vmax23.8 cm/sP 1/2 T62 ms E/A ratio3.6MVA (PHT)3.5 cm2 TDI E/E' [place]81.4E/E' Bwzltty61.1 Medial E' Peak V4.90 cm/sLateral E' Peak V6.51 cm/s Pulmonary Valve PV Vmax0.7 m/sPV VTI0.10 mPV Mean GR1.0 mmHg PV Peak GR2.0 mmHg Tricuspid Valve TR Vmax1.4 m/sRVSP8.0 mmHg TR Peak GR8.0 mmHg Left Ventricle The left ventricle is normal size. GLPS severely decreased at -5%. Severe global hypokinesis. There i s normal left ventricular wall thickness. LVEF is 25-30%. Stage III diastolic dysfunction. Right Ventricle The right ventricle is normal size. Right ventricular systolic function is mildly reduced. Device michelle d is present in the right ventricle. Atria The left atrium is severely dilated. The right atrium is moderately dilated. Aortic Valve The aortic valve is normal in structure. No aortic regurgitation is present. There is no aortic valvu lar stenosis. Mitral Valve The mitral valve is normal in structure. Mitral regurgitation is mild. There is no mitral valve steno sis. Tricuspid Valve The tricuspid valve is normal in structure. There is trivial tricuspid valve regurgitation noted. Pulmonic Valve The pulmonary valve is normal in structure. There is no pulmonic valvular regurgitation. Great Vessels The aortic root is normal in size. IVC is dilated and collapses <50% with inspiration. Pericardium Trace pericardial effusion. Conclusion IVC is dilated and collapses <50% with inspiration. The left atrium is severely dilated. Device lead is present in the right ventricle. There is normal left ventricular wall thickness. GLPS severely decreased at -5%. Severe global hypokinesis. LVEF is 25-30%. Stage III diastolic dysfunction. Mitral regurgitation is mild. Trace pericardial effusion.
[2025-02-18 21:03] LABS: APPEARANCE,URINE CLEAR (CLEAR); BILIRUBIN,URINE NEGATIVE (NEGATIVE); COLOR,URINE LIGHT-YELLOW (YELLOW); GLUCOSE, URINE (UA) NEGATIVE (NEGATIVE); KETONES,URINE NEGATIVE (NEGATIVE); LEUKOCYTE ESTERASE ,URINE NEGATIVE Leu/uL (NEGATIVE); NITRATE,URINE NEGATIVE (NEGATIVE); OCCULT BLOOD,URINE NEGATIVE (NEGATIVE); PH,URINE 6.5 (5.0-8.0); PROTEIN,URINE NEGATIVE (NEGATIVE); UROBILINOGEN,URINE 0.2 mg/dL (0.2-1.0)
[2025-02-18 21:04] LABS: RBC,URINE 0-1 /HPF (0-1); WBC,URINE 0-1 /HPF (0-1)
--- NOTE | 2025-02-18 21:41 | NUR ---
REPORT GIVEN TO NURSE MICHELLE
[2025-02-18 21:45] VITALS: BP 132/94; PULSE 87; RESP 20; TEMP 97.6
[2025-02-18] MEDS ORDERED: CLON0.5T4 PO (22:09)
[2025-02-19] VITALS (7 sets, daily range): BP systolic 103–123; BP diastolic 62–82; PULSE 60–87; RESP 17–20; TEMP 97.5–98.2; O2SAT 98–100
[2025-02-19 06:12] LABS: BASOPHILS # (AUTO) 0.04 K/uL (0.00-0.20); BASOPHILS % (AUTO) 0.7 % (0.0-5.0); EOSINOPHILS # (AUTO) 0.04 K/uL (0.00-0.70); EOSINOPHILS % (AUTO) 0.7 % (0.0-8.0); IMMATURE GRANULOCYTE ABSOLUTE 0.02 K/uL (0-1); LYMPHOCYTES # (AUTO) 1.3 K/uL (1.0-4.8); LYMPHOCYTES % (AUTO) 23.3 % (21.0-51.0); MEAN CORPUSCULAR HEMOGLOBIN 31.7 pg (27.0-33.0); MEAN CORPUSCULAR HGB CONC 33.9 g/dL (32.0-36.0); MEAN CORPUSCULAR VOLUME 93.6 fL (79-99); MONOCYTES # (AUTO) 0.5 K/uL (0.1-1.0); MONOCYTES % (AUTO) 8.8 % (3.0-13.0); NEUTROPHILS # (AUTO) 3.6 K/uL (1.8-7.7); NEUTROPHILS % (AUTO) 66.1 % (40.0-77.0); PLATELET COUNT (AUTO) 127 K/uL (130-400); RED BLOOD CELL COUNT(AUTO) 4.38 MIL/uL (4.50-6.20); RED CELL DISTRIBUTION WIDTH 13.5 % (11.0-15.5); WHITE BLOOD COUNT (AUTO) 5.5 K/uL (4.8-10.8)
[2025-02-19 06:16] LABS: CHLORIDE 103 mmol/L (101-111); SODIUM SERUM 142 mmol/L (136-145)
[2025-02-19 06:32] LABS: ALANINE AMINOTRANSFERASE 27 U/L (12-78); ALBUMIN 3.6 g/dL (3.5-5.0); AMYLASE 53 U/L (25-115); ASPARTATE AMINOTRANSFERASE 16 U/L (10-37); BILIRUBIN,DIRECT 0.4 mg/dL (0.0-0.3); BILIRUBIN,TOTAL 1.3 mg/dL (0.2-1.0); CARBON DIOXIDE 33 mmol/L (21-32); CREATINE KINASE, TOTAL 87 U/L (21-232); CREATININE 1.1 mg/dL (0.5-1.3); GLOMERULAR FILTR. RATE CALC 66 mL/min (>90); GLUCOSE,RANDOM 97 mg/dL (70-105); TOTAL PROTEIN, SERUM 7.1 g/dL (6.0-8.3); UREA NITROGEN, BLOOD 19 mg/dL (7-18)
[2025-02-19 06:33] LABS: HEMOGLOBIN A1C 5.7 % (4.0-6.0)
[2025-02-19 06:34] LABS: AMMONIA < 10 umol/L (11-32)
[2025-02-19] MEDS: EMPAGLIFLOZIN 10MG TABLET PO SCH (09:01)
[2025-02-19] MEDS: MAGNESIUM 2GM PREMIX 50ML 50 ML IV PRN (09:02)
[2025-02-19] MEDS ORDERED: MAGNESIUM 2GM PREMIX 50ML 50 ML IV SCH ×2 (12:00→16:00)
[2025-02-19] MEDS ORDERED: PoTASSium chloRIDE 10MEQ SR 10 MEQ/TAB TAB.SR.24H PO PRN (13:30)
--- NOTE | 2025-02-19 15:33 | PN ---
[facility] PROGRESS NOTE Date of Service: Feb 19, 2025 Time of Service: 15:[address] Lopez SUBJECTIVE: [ 02/18 Patient is84 years old male with a past medical history of hypertension, hyperlipidemia, BPH, cardiac catheterization 2015, nonischemic cardiomyopathy with EF of35 to 40% prior assessment, AICD placement 2015, paroxysmal AFib not on any anticoagulation medication, who came to emergency department with a complaint of shortness of breaths for the past four days. Patient was also complaining of having some dyspnea on exertion with palpitations. Patient denies any chest pain, nausea, dizziness, vomiting, near syncope or syncope episodes. Patient also stated that he does not have anymore off his carvedilol medicine so for approximately 3 to 4 days he has has not been taking his pills. In the emergency department patient's EKG demonstrated ventricle paced rhythm with underlying AFib. BNP 688. D-dimer was [address] scan PE chest protocol which was negative for pulmonary embolism. Chest x-ray demonstrated prior AICD placement and CHF changes. Consultation cardiology was requested and patient was already seen by Dr. 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 Patient is on room air satting 96%. WBC 7.7 Hemoglobin 13.4 hematocrit 40.5 platelets 119 [id number] potassium 4.5 CO2 29 BUN25 creatinine 1.0 GFR74 random glucose 94 troponin negative x1 BNP 680 Patient will be admitted under hospitalist care for further evaluation/recommend ation. A.m. lab 02/19 patient was seen by nurse practitioner physician during rounding in room 318. 2D echo showed EF of25 to 30% stage III diastolic dysfunction. Patient is pending pacemaker interrogation. At this moment we are pending Cardiology cons ultation/evaluation/further recommendations. Magnesium was 1.6 patient will receive 2 g of magnesium. We will continue to monitor patient in the meantime. A.m. labs] REVIEW OF SYSTEMS CONSTITUTIONAL: Denies fevers, chills, or night sweats. No unintentional weight loss reported. NEUROLOGICAL: Denies headache, amaurosis fugax, motor weakness, sensory deficit, vertigo/spinning sensation, gait abnormalities, or tremors. ENT: No hearing loss, otalgia, otorrhea, rhinitis, rhinorrhea, hoarseness, or sore throat. CARDIOVASCULAR: Denies any exertional angina, dyspnea on exertion, orthopnea, paroxysmal nocturnal dyspnea, palpitations, life-threatening arrhythmias, claudication. PULMONARY: Denies any , cough, phlegm/sputum, hemoptysis, pleuritic chest pain. Complains of shortness of breaths, which has improved for previous day SLEEP: Denies morning headaches, daytime somnolence or napping. Denies difficulty falling asleep, staying asleep, waking from sleep. Denies knowledge of snoring. GASTROINTESTINAL: Denies any type of dysphagia to either liquids or solids. Denies nausea, vomiting, pyrosis, early satiety, abdominal pain, diarrhea, constipation, or changes in stool consistency or caliber. Denies coffee-ground emesis, hematemesis, hematochezia, or melanotic stools. GENITOURINARY: Denies frequency, urgency, nocturia, hematuria or incontinence (Storage/Irritative symptoms.) Low urinary stream, straining to void, urinary intermittency or hesitancy, splitting of the voiding stream, terminal dribbling. ENDOCRINOLOGIC: Denies polyuria, polydipsia, polyphagia or heat/cold intolerances. HEMATOLOGIC: Denies thrombophilia/previous clots, or coagulopathy/bleeding disorders. ONCOLOGIC: Denies personal history of malignancy. DERMATOLOGIC: Denies rashes or pruritus. PSYCHIATRIC: Denies any suicidal or homicidal ideation. Denies hallucinations. PHYSICAL EXAM GENERAL APPEARANCE: The patient is awake, alert, and oriented, in no acute cardiopulmonary distress. NEUROLOGICAL: Cranial nerves II-XII grossly intact. Motor is 5/5 in bilateral upper and lower extremities proximal to distal. No sensory deficits. HEENT: Face is symmetric. Pupils are equal and reactive. Extraocular movements are intact. NECK: Supple. No JVD. No thyromegaly. No submental, submandibular, pre- /postauricular, occipital or supraclavicular lymphadenopathy. CHEST: Normal chest expansion. No Telemetry. LUNGS: Absence of any rales, rhonchi or any wheezing. CARDIOVASCULAR: Regular. S1 and S2 normal. No appreciable rubs, murmurs or gallops. ABDOMEN: Soft, nontender, and nondistended. There is no rebound, voluntary guarding, or rigidity. : Deferred. No [place]. EXTREMITIES: Non-edematous and not cyanotic. No clubbing. Good capillary refill. SKIN: No skin breakdown. Vital Signs (last 8hr) Date Time Temp Pulse Resp B/P (MAP) Pulse Ox O2 Delivery O2 Flow Rate FiO2 02/19/25 11:31 98.2 87 18 104/62 95 Room Air 02/19/25 09:00 93/69 02/19/25 08:00 100 Room Air* 0 21 02/19/25 08:00 98.1 60 17 103/74 100 Nasal Cannula 2.0 LABS: Laboratory: Test 02/19/25 11:36 02/19/25 05:56 02/18/25 20:22 02/18/25 04:45 Range/Units Whole Blood Glucose 91 70-110 MG/DL White Blood Count 5.5 4.8-10.8 K/uL Red Blood Count 4.38 L 4.50-6.20 MIL/uL Hemoglobin 13.9 L 14.0-18.0 g/dL Hematocrit 41.0 L 42-54 % Mean Corpuscular Volume 93.6 79-99 fL Mean Corpuscular Hemoglobin 31.7 27.0-33.0 pg Mean Corpuscular Hemoglobin Concent 33.9 32.0-36.0 g/dL Red Cell Distribution Width 13.5 11.0-15.5 % Platelet Count 127 L 130-400 K/uL Mean Platelet Volume 10.9 H 7.5-10.5 fL Immature Granulocyte % (Auto) 0.4 0-1 % Neutrophils (%) (Auto) 66.1 40.0-77.0 % Lymphocytes (%) (Auto) 23.3 21.0-51.0 % Monocytes (%) (Auto) 8.8 3.0-13.0 % Eosinophils (%) (Auto) 0.7 0.0-8.0 % Basophils (%) (Auto) 0.7 0.0-5.0 % Neutrophils # (Auto) 3.6 1.8-7.7 K/uL Lymphocytes # (Auto) 1.3 1.0-4.8 K/uL Monocytes # (Auto) 0.5 0.1-1.0 K/uL Eosinophils # (Auto) 0.04 0.00-0.70 K/uL Basophils # (Auto) 0.04 0.00-0.20 K/uL Absolute Immature Granulocyte (auto 0.02 0-1 K/uL Nucleated Red Blood Cells 0.0 0.0-0.19 % Sodium Level 142 136-145 mmol/L Potassium Level 4.0 3.5-5.1 mmol/L Chloride Level 103 101-111 mmol/L Carbon Dioxide Level 33 H 21-32 mmol/L Blood Urea Nitrogen 19 H 7-18 mg/dL Creatinine 1.1 0.5-1.3 mg/dL Glomerular Filtration Rate Calc 66 >90 mL/min Random Glucose 97 70-105 mg/dL Hemoglobin A1c 5.7 4.0-6.0 % Estimated Average Glucose (eAG) 117 70-126 mg/dL Lactic Acid Level 1.5 0.8-2.5 mmol/L Total Calcium 8.7 8.5-10.1 mg/dL Magnesium Level 1.60 L 1.80-2.40 mg/dL Total Bilirubin 1.3 H 0.2-1.0 mg/dL Direct Bilirubin 0.4 H 0.0-0.3 mg/dL Aspartate Amino Transf (AST/SGOT) 16 10-37 U/L Alanine Aminotransferase (ALT/SGPT) 27 12-78 U/L Alkaline Phosphatase 102 50-136 U/L Ammonia < 10 L 11-32 umol/L Total Creatine Kinase 87 21-232 U/L Troponin I High Sensitivity 37.7 4-75 ng/L B-Type Natriuretic Peptide 537 H 0-100 pg/mL Total Protein 7.1 6.0-8.3 g/dL Albumin 3.6 3.5-5.0 g/dL Amylase Level 53 25-115 U/L Lipase 32 16-77 U/L Procalcitonin < 0.05 L 0.05-0.5 ng/mL Urine Color LIGHT-YELLOW YELLOW Urine Appearance CLEAR CLEAR Urine pH 6.5 5.0-8.0 Urine Specific [place] 1.016 1.001-1.031 Urine Protein NEGATIVE NEGATIVE mg/dL Urine Glucose (UA) NEGATIVE NEGATIVE mg/dL Urine Ketones NEGATIVE NEGATIVE mg/dL Urine Occult Blood NEGATIVE NEGATIVE Urine Nitrate NEGATIVE NEGATIVE Urine Bilirubin NEGATIVE NEGATIVE mg/dL Urine Urobilinogen 0.2 0.2-1.0 mg/dL Urine Leukocyte Esterase NEGATIVE NEGATIVE Ashlee/uL Urine RBC 0-1 0-1 /HPF Urine WBC 0-1 0-1 /HPF Urine Bacteria None None Seen /HPF Influenza Type A Antigen Negative For Type A NEGATIVE Influenza Type B Antigen Negative For Type B NEGATIVE SARS-CoV-2 Antigen (Rapid) PRESUMPTIVE NEGATIVE NEGATIVE Group A Streptococcus Rapid negative NEGATIVE Test 02/18/25 04:13 Range/Units D-Dimer Quantitative (PE/DVT) 1989 *H 0-500 ng/mL Current Medications Medications (Trade) Dose Ordered Sig/Segundo Route PRN Reason Start Time Stop Time Status Last Admin Dose Admin Acetaminophen (TYLenol 325MG TAB) 650 mg Q4H PRN PO MILD PAIN (1-3) 02/18/25 07:00 03/20/25 06:59 Acetaminophen (TYLenol 325MG TAB) 650 mg Q6H PRN PO MILD PAIN (1-3) 02/18/25 07:00 02/18/25 07:03 DC Acetaminophen (TYLenol 325MG TAB) 650 mg Q6H PRN PO TEMPERATURE GREATER THAN 101.5 02/18/25 07:00 03/20/25 06:59 Al Hydroxide/Mg Hydroxide (MAALox PLUS 30ML) 30 ml Q6H PRN PO INDIGESTION 02/18/25 07:00 03/20/25 06:59 Carvedilol (Coreg 6.25MG) 6.25 mg BID PO 02/18/25 12:00 03/20/25 11:59 02/18/25 20:13 6.25 MG Dextrose (D50w) 50 ml AD PRN IV HYPOGLYCEMIA PROTOCOL 02/18/25 07:00 03/20/25 06:59 Diphenhydramine HCl (BENAdryl INJ) 25 mg Q6H PRN IV SEVERE ITCHING/RASH 02/18/25 07:00 03/20/25 06:59 Empaglifozin (Jardiance 10mg) 10 mg DAILY PO 02/19/25 09:00 03/21/25 08:59 02/19/25 09:01 10 MG Enoxaparin Sodium (Lovenox 80mg) 70 mg BID SQ 02/18/25 21:00 03/20/25 20:59 02/19/25 09:01 70 MG Famotidine (Pepcid 20mg Vial) 20 mg BID PRN IV NAUSEA/VOMITING 02/18/25 07:00 02/18/25 07:03 DC Famotidine (Pepcid 20mg Vial) 20 mg DAILY IV 02/18/25 09:00 03/20/25 08:59 02/19/25 09:00 20 MG Furosemide (LASix 40MG VIAL) 40 mg BID IVP 02/18/25 09:00 03/20/25 08:59 02/19/25 09:01 40 MG Glucagon (Glucagon 1mg Kit) 1 mg AD PRN IM HYPOGLYCEMIA PROTOCOL 02/18/25 07:00 03/20/25 06:59 Guaifenesin/ Dextromethorphan (RobiTUSSin DM 200/20MG 10ML) 10 ml Q4H PRN PO COUGH 02/18/25 07:00 03/20/25 06:59 Heparin Sodium (Porcine) (HEParin 5,000 UNIT VIAL) 5,000 unit BID SQ 02/18/25 09:00 02/18/25 11:46 DC 02/18/25 08:56 5,000 UNIT Hydralazine HCl (APRESOLine 20MG INJ) 10 mg Q6H PRN IV For:SBP above 160;DBP above 90 02/18/25 07:00 03/20/25 06:59 Insulin Human Regular (humuLIN R 100 UNIT/ML 3ML) INSULIN SLIDING SCAL... ACHS SQ 02/18/25 07:30 03/20/25 07:29 Ketorolac Tromethamine (toRADol) 15 mg Q8H PRN IV MODERATE PAIN (4-6) 02/18/25 07:00 02/23/25 06:59 Lactulose (Constulose 20gm/ 30ml Udcup) 20 gm BID PRN PO CONSTIPATION 02/18/25 07:00 03/20/25 06:59 Magnesium Sulfate 50 ml @ 0 mls/hr PROTOCOL IV 02/19/25 12:00 02/19/25 11:41 DC Magnesium Sulfate 50 ml @ 0 mls/hr PROTOCOL PRN IV other 02/18/25 07:00 03/20/25 06:59 02/19/25 09:02 25 MLS/HR Morphine Sulfate (morPHINE 2MG SYG) 1 mg Q4H PRN IVP SEVERE PAIN (7-10) 02/18/25 07:00 02/25/25 06:59 Nitroglycerin (Nitrostat) 0.4 mg PROTOCOL PRN SL CHEST PAIN 02/18/25 07:00 03/20/25 06:59 Ondansetron HCl (zoFRAN 4MG INJ) 4 mg Q6H PRN IV NAUSEA/VOMITING 02/18/25 07:00 03/20/25 06:59 Potassium Chloride 100 ml @ 100 mls/hr AD PRN IV POTASSIUM PROTOCOL 02/18/25 07:00 03/20/25 06:59 Potassium Chloride (K-Dur 10meq Sr Tab) 10 meq AD PRN PO POTASSIUM PROTOCOL 02/19/25 13:30 03/20/25 06:59 Potassium Chloride (K-Dur/Klor-Con 20meq) 10 meq AD PRN PO POTASSIUM PROTOCOL 02/18/25 07:00 02/19/25 13:26 DC Potassium Chloride (KCl 10% Elixir 20meq/15ml) 10 meq AD PRN PO POTASSIUM PROTOCOL 02/18/25 07:00 03/20/25 06:59 Sacubitril/ Valsartan (Entresto 24 Mg-26 Mg Tablet) 1 each BID PO 02/18/25 12:30 03/20/25 12:29 02/18/25 20:13 1 EACH Zolpidem Tartrate (AmbIEN) 5 mg HS PRN PO INSOMNIA 02/18/25 07:00 03/20/25 06:59 DIAGNOSTICS / RADIOLOGY: [ ] ASSESSMENT: [ Acute on chronic systolic and diastolic congestive heart failure HFrEF (LVEF25 to 30% 02/18/2025) POA Nonischemic cardiomyopathy, status post prior [place] scientific AICD placement 2016 POA Paroxysmal atrial fibrillation POA Acute dehydration POA Chronic left bundle branch block POA Pacemaker dependent POA Multifactorial anemia POA Normal coronary arteries by prior catheterization 2016 Uncontrolled Hypertension POA Hyperlipidemia POA BPH POA Allergic rhinitis] PLAN: [ Admit to: Medical-surgical floor with tele Consults: Waiver Analyst Antibiotics: None Tests: Pacemaker interrogation pending NEURO: Minimize central acting medications as possible. Fall Precautions. Well lighted room through the day and minimize interruptions through the night to prevent acute delirium. PULMONARY: Chest x-ray bilateral pulmonary infiltrate pneumonitis CT chest negative PE Supplemental 02 as needed BiPAP as necessary, for respiratory distress Titrate Fio2 to keep Spo2 > or = 90% DuoNebs and CPT as needed IS hourly while awake for pulmonary hygiene Out of bed to chair as tolerated VAP Bundle Maintain aspiration precautions at all times CARDIOVASCULAR: 2D echo EF25 to 30% stage III diastolic dysfunction Pending cardiology further recommendations Follow hemodynamics. Vital signs per facility protocol GI & NUTRITION: Continue nutritional support Aspirations precautions Prokinetic agents and laxatives as needed KIDNEYS & ELECTROLYTES: Strict monitoring of intake and output Daily weights Avoid nephrotoxic agents Monitor electrolytes and replace as needed Goal urine output of 30mL/hr or 0.5mL/kg/hr Medications to be dosed according to renal function. Avoid contrast if possible ENDOCRINE: Maintain blood glucose between 100-180 at all times. Insulin sliding scale for blood glucose management Hypoglycemia and hyperglycemia protocol in place INFECTIOUS DISEASE: Trend temperature, WBC and procalcitonin level Follow cultures, deescalate antibiotics as soon as possible. Panculture if new onset fever HEMATOLOGY & COAGULATION: Monitor H&H. Keep Hgb > 7 Transfuse 1 unit of PRBC for Hgb < 7 Transfuse 1 pack of platelets of platelets < 20, 000 Watch for any signs and symptoms of bleeding SKIN: Pressure ulcer prevention per facility protocol Specialty mattress as needed Treatment plan discussed with patient and family at the bedside Medications to be reconciled once obtained by patient and/or family and available to be reconciled in computer p.r.n. medication for pain nausea and vomiting Questions were answered We will continue to monitor the patient closely Director Of Product Marketing for disposition Rehab: PT/OT GI: PPI DVT: SCD's Code Status: Full Resuscitation Disposition: TBD Prognosis: Guarded] ATTESTATION BY PHYSICIAN I have seen and examined the patient. I reviewed the documentation, medical decision making, and treatment plan as noted by the mid-level provider above. I agree with the findings and plan of care. LEON LOPEZ MD, KATARZYNA B [employer] TOD[employer] LEAD TEACHER Feb 19, 2025 15:33
--- NOTE | 2025-02-19 16:36 | NUR ---
Pt is walking the unit I. Transfers, bed mobility all I. No PT needs at this time. DC home no PT/ DME
--- NOTE | 2025-02-19 21:10 | NUR ---
MEDS SHIFT ASSESSMENT DONE, PLEASE REFER TO CHART. DUE MEDS ADMINISTERED, TOLERATED WELL. KEPT RESTED AND COMFORTABLE IN BED. ENCOURAGED TO REST AND SLEEP. CALL LIGHT WITHIN REACH.
[2025-02-20 00:35] VITALS: BP_SYST 144; BP_SYST 99; BP_DIAS 59; BP_DIAS 75; PULSE 20; PULSE 78; RESP 20; TEMP 98
[2025-02-20 04:00] VITALS: BP 121/75; PULSE 95; RESP 20; TEMP 97.8
--- NOTE | 2025-02-20 05:35 | NUR ---
ROUNDS PT SLEPT AT INTERVALS DURING THE SHIFT. NO DISTRESS NOTED. KEPT WARM AND COMFORTABLE IN BED. CALL LIGHT WITHIN REACH. FOR MORE CARE.
[2025-02-20 06:48] LABS: BASOPHILS # (AUTO) 0.05 K/uL (0.00-0.20); BASOPHILS % (AUTO) 0.6 % (0.0-5.0); EOSINOPHILS # (AUTO) 0.03 K/uL (0.00-0.70); EOSINOPHILS % (AUTO) 0.4 % (0.0-8.0); HEMATOCRIT 48.5 % (42-54); IMMATURE GRANULOCYTE ABSOLUTE 0.04 K/uL (0-1); LYMPHOCYTES # (AUTO) 2.1 K/uL (1.0-4.8); LYMPHOCYTES % (AUTO) 27.4 % (21.0-51.0); MEAN CORPUSCULAR HEMOGLOBIN 31.7 pg (27.0-33.0); MEAN CORPUSCULAR VOLUME 96.2 fL (79-99); MONOCYTES # (AUTO) 0.7 K/uL (0.1-1.0); MONOCYTES % (AUTO) 8.6 % (3.0-13.0); NEUTROPHILS # (AUTO) 4.8 K/uL (1.8-7.7); NEUTROPHILS % (AUTO) 62.5 % (40.0-77.0); PLATELET COUNT (AUTO) 146 K/uL (130-400); RED BLOOD CELL COUNT(AUTO) 5.04 MIL/uL (4.50-6.20); RED CELL DISTRIBUTION WIDTH 13.8 % (11.0-15.5); WHITE BLOOD COUNT (AUTO) 7.8 K/uL (4.8-10.8)
[2025-02-20 07:09] LABS: ALBUMIN 4.1 g/dL (3.5-5.0); BILIRUBIN,TOTAL 1.3 mg/dL (0.2-1.0); CREATININE 1.6 mg/dL (0.5-1.3); MAGNESIUM 2.1 mg/dL (1.80-2.40); POTASSIUM 3.5 mmol/L (3.5-5.1); TOTAL PROTEIN, SERUM 7.8 g/dL (6.0-8.3)
[2025-02-20 08:00] VITALS: BP 100/58; PULSE 62; RESP 18; TEMP 97.5
[2025-02-20 12:00] VITALS: BP 97/55; PULSE 78; RESP 17; TEMP 98.2
--- NOTE | 2025-02-20 14:07 | PN ---
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 Patient's creatinine on admission was normal. I did review all of the patient's home medications that he was taking and he was not on a diuretic as an outpatient but he was on guideline directed medical therapy to include carvedilol at 6.25 mg twice daily, losartan at 100 mg daily in addition to medications for BPH. Telemetry has been reviewed. REVIEW OF SYSTEMS: No fever, headache, chest pain, abdominal pain, nausea, vomiting, or diarrhea. VITAL SIGNS Vital Signs Date Time Temp Pulse Resp B/P (MAP) Pulse Ox O2 Delivery O2 Flow Rate FiO2 02/20/25 12:00 98.2 78 17 97/55 100 Nasal Cannula 2.0 02/19/25 21:10 21 Laboratory Tests 02/20/25 06:39 LABS/MEDS Laboratory Tests Test 02/19/25 16:01 02/19/25 19:28 02/20/25 05:26 02/20/25 06:39 Whole Blood Glucose 131 MG/DL (70-110) H 152 MG/DL (70-110) H 92 MG/DL (70-110) White Blood Count 7.8 K/uL (4.8-10.8) Red Blood Count 5.04 MIL/uL (4.50-6.20) Hemoglobin 16.0 g/dL (14.0-18.0) Hematocrit 48.5 % (42-54) Mean Corpuscular Volume 96.2 fL (79-99) Mean Corpuscular Hemoglobin 31.7 pg (27.0-33.0) Mean Corpuscular Hemoglobin Concent 33.0 g/dL (32.0-36.0) Red Cell Distribution Width 13.8 % (11.0-15.5) Platelet Count 146 K/uL (130-400) Mean Platelet Volume 10.7 fL (7.5-10.5) H Immature Granulocyte % (Auto) 0.5 % (0-1) Neutrophils (%) (Auto) 62.5 % (40.0-77.0) Lymphocytes (%) (Auto) 27.4 % (21.0-51.0) Monocytes (%) (Auto) 8.6 % (3.0-13.0) Eosinophils (%) (Auto) 0.4 % (0.0-8.0) Basophils (%) (Auto) 0.6 % (0.0-5.0) Neutrophils # (Auto) 4.8 K/uL (1.8-7.7) Lymphocytes # (Auto) 2.1 K/uL (1.0-4.8) Monocytes # (Auto) 0.7 K/uL (0.1-1.0) Eosinophils # (Auto) 0.03 K/uL (0.00-0.70) Basophils # (Auto) 0.05 K/uL (0.00-0.20) Absolute Immature Granulocyte (auto 0.04 K/uL (0-1) Nucleated Red Blood Cells 0.0 % (0.0-0.19) Sodium Level 141 mmol/L (136-145) Potassium Level 3.5 mmol/L (3.5-5.1) Chloride Level 101 mmol/L (101-111) Carbon Dioxide Level 33 mmol/L (21-32) H Blood Urea Nitrogen 26 mg/dL (7-18) H Creatinine 1.6 mg/dL (0.5-1.3) H Glomerular Filtration Rate Calc 42 mL/min (>90) Random Glucose 102 mg/dL (70-105) Total Calcium 9.0 mg/dL (8.5-10.1) Magnesium Level 2.10 mg/dL (1.80-2.40) Total Bilirubin 1.3 mg/dL (0.2-1.0) H Aspartate Amino Transf (AST/SGOT) 17 U/L (10-37) Alanine Aminotransferase (ALT/SGPT) 25 U/L (12-78) Alkaline Phosphatase 111 U/L (50-136) Total Protein 7.8 g/dL (6.0-8.3) Albumin 4.1 g/dL (3.5-5.0) Test 02/20/25 11:37 Whole Blood Glucose 149 MG/DL (70-110) #H Current Medications Insulin Human Regular INSULIN SLIDING SCAL... ACHS SQ; Start 02/18/25 at 07:30; Stop 03/20/25 at 07:29 Dextrose 50 ml AD PRN IV; Start 02/18/25 at 07:00; Stop 03/20/25 at 06:59 Glucagon 1 mg AD PRN IM; Start 02/18/25 at 07:00; Stop 03/20/25 at 06:59 Potassium Chloride 100 ml @ 100 mls/hr AD PRN IV; Start 02/18/25 at 07:00; Stop 03/20/25 at 06:59 Potassium Chloride 10 meq AD PRN PO; Start 02/18/25 at 07:00; Stop 03/20/25 at 06:59 Potassium Chloride 10 meq AD PRN PO; Start 02/18/25 at 07:00; Stop 02/19/25 at 13:26; Status DC Magnesium Sulfate 50 ml @ 0 mls/hr PROTOCOL PRN IV Last administered on 02/19/25at 09:02; Start 02/18/25 at 07:00; Stop 03/20/25 at 06:59 Diphenhydramine HCl 25 mg Q6H PRN IV; Start 02/18/25 at 07:00; Stop 03/20/25 at 06:59 Acetaminophen 650 mg Q6H PRN PO; Start 02/18/25 at 07:00; Stop 03/20/25 at 06:59 Acetaminophen 650 mg Q4H PRN PO; Start 02/18/25 at 07:00; Stop 03/20/25 at 06:59 Ondansetron HCl 4 mg Q6H PRN IV; Start 02/18/25 at 07:00; Stop 03/20/25 at 06:59 Zolpidem Tartrate 5 mg HS PRN PO; Start 02/18/25 at 07:00; Stop 03/20/25 at 06:59 Al Hydroxide/Mg Hydroxide 30 ml Q6H PRN PO; Start 02/18/25 at 07:00; Stop 03/20/25 at 06:59 Lactulose 20 gm BID PRN PO; Start 02/18/25 at 07:00; Stop 03/20/25 at 06:59 Nitroglycerin 0.4 mg PROTOCOL PRN SL; Start 02/18/25 at 07:00; Stop 03/20/25 at 06:59 Guaifenesin/ Dextromethorphan 10 ml Q4H PRN PO; Start 02/18/25 at 07:00; Stop 03/20/25 at 06:59 Famotidine 20 mg BID PRN IV; Start 02/18/25 at 07:00; Stop 02/18/25 at 07:03; Status DC Heparin Sodium (Porcine) 5,000 unit BID SQ Last administered on 02/18/25at 08:56; Start 02/18/25 at 09:00; Stop 02/18/25 at 11:46; Status DC Acetaminophen 650 mg Q6H PRN PO; Start 02/18/25 at 07:00; Stop 02/18/25 at 07:03; Status DC Ketorolac Tromethamine 15 mg Q8H PRN IV; Start 02/18/25 at 07:00; Stop 02/23/25 at 06:59 Morphine Sulfate 1 mg Q4H PRN IVP; Start 02/18/25 at 07:00; Stop 02/25/25 at 06:59 Furosemide 40 mg BID IVP Last administered on 02/19/25at 21:07; Start 02/18/25 at 09:00; Stop 02/20/25 at 09:44; Status DC Hydralazine HCl 10 mg Q6H PRN IV; Start 02/18/25 at 07:00; Stop 03/20/25 at 06:59 Famotidine 20 mg DAILY IV Last administered on 02/20/25at 09:32; Start 02/18/25 at 09:00; Stop 03/20/25 at 08:59 Iohexol 75 ml STK-MED ONCE IV; Start 02/18/25 at 08:22; Stop 02/18/25 at 08:22; Status DC Enoxaparin Sodium 70 mg BID SQ Last administered on 02/20/25at 09:33; Start 02/18/25 at 21:00; Stop 03/20/25 at 20:59 Carvedilol 6.25 mg BID PO Last administered on 02/20/25at 09:33; Start 02/18/25 at 12:00; Stop 03/20/25 at 11:59 Sacubitril/ Valsartan 1 each BID PO Last administered on 02/19/25at 21:06; Start 02/18/25 at 12:30; Stop 03/20/25 at 12:29 Empaglifozin 10 mg DAILY PO Last administered on 02/20/25at 09:33; Start 02/19/25 at 09:00; Stop 03/21/25 at 08:59 Magnesium Sulfate 50 ml @ 0 mls/hr PROTOCOL IV; Start 02/19/25 at 12:00; Stop 02/19/25 at 11:41; Status DC Potassium Chloride 10 meq AD PRN PO; Start 02/19/25 at 13:30; Stop 03/20/25 at 06:59 Magnesium Sulfate 50 ml @ 0 mls/hr PROTOCOL IV; Start 02/19/25 at 16:00; Stop 02/19/25 at 15:32; Status DC Furosemide 40 mg DAILY PO; Start 02/20/25 at 16:00; Stop 03/22/25 at 15:59 PHYSICAL EXAMINATION: GENERAL: No acute distress. HEENT: Normocephalic, atraumatic. CARDIAC: Positive S1 and S2. No murmurs. LUNGS: Clear to auscultation bilaterally. ABDOMEN: Bowel sounds present, soft, nontender. EXTREMITIES: No edema bilaterally. NEUROLOGIC: Cranial nerves 2-12 grossly intact. PSYCHIATRIC: Calm. TELEMETRY: V paced rhythm with underlying atrial fibrillation ASSESSMENT: See above PLAN: At this time no do appreciate evaluation and changed from losartan to Entresto however without some kind of assistance for purchasing that medication his states that they can not afford it. In review of his medications he has not been on a diuretic as an outpatient and I do feel that possibly just adding an outpatient diuretic and continuing his home dose of losartan and carvedilol should be sufficient. Patient also does have a widened QRS with V pacing and we will have him see Dr. Chad Weiss 0 HAIR regarding possible biventricular upgrade. In addition we will add Eliquis at 5 mg twice daily considering patient's weight and previous renal function this would be appropriate dosing for patient as he has agreed to initiate anticoagulation secondary to a significantly elevated CHADS2-vasc score. Patient has no history of falls at home and no bleeding issues or complications or prior cerebral hemorrhagic CVA. Patient has been told to garbage pick up man samples at the office upon discharge. Patient will follow up with his primary care physician in 1 week. He will follow up with me in 1-2 weeks. He will need a repeat basic metabolic profile early next week. NORBERT MIXON MD Feb 20, 2025 14:07
[2025-02-20] MEDS ORDERED: EMPA10TA PO (15:28)
[2025-02-20] MEDS ORDERED: FURO40TA7 PO (15:28)
--- NOTE | 2025-02-20 15:34 | DS ---
Discharge Summary Hospital Course Summary: DATE OF ADMISSION:[02/18/2025] DATE OF DISCHARGE:[02/20/2025] DISPOSITION:[Home] CONDITION:[Medically stable] CONSULTANTS:[[employer]] FOLLOW UP APPOINTMENTS:[Follow up with glue maker bone within one week. Follow up with within one week] PROCEDURES:[Pacemaker interrogation 02/19/2025] IMAGING: report attached to summary MICROBIOLOGY: report attached to summary ACTIVITY:[Independent] HOME MEDICATIONS: see [facility] NEW MEDICATIONS:[Written prescription by glue maker bone was given to the patient for Eliquis 5 mg p.o. b.i.d. 60 pills, Lasix 40 mg p.o. daily 90 pills. 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 Patient denied any chest pain, nausea, dizziness, vomiting or any near syncope or syncope episodes. 2D echo was performed and showed 25 to 30% stage III diastolic dysfunction. Pacemaker was interrogated on 02/19/2025. CT PE protocol was performed and was negative. Chest x-ray showed infiltrate, pneumonitis. BNP on admission was 537. Electrolytes were replaced per protocol. Patient was evaluated by the glue maker bone and as per Dr. Collado patient is cleared to be discharged home on furosemide, patient's home medication losartan and carvedilol. Discontinue Entresto. Follow up with regarding possible biventricular upgrade within one week. Patient also received a prescription for Eliquis 5 mg b.i.d. to initiate anticoagulation secondary to significantly elevated CHADS2-vasc score. Patient is cleared to be discharged home follow up with PCP in 2 to 3 days. Procedure(s): PHYSICAL EXAMINATION: GENERAL: No acute distress. HEENT: Normocephalic, atraumatic. CARDIAC: Positive S1 and S2. No murmurs. LUNGS: Clear to auscultation bilaterally. ABDOMEN: Bowel sounds present, soft, nontender. EXTREMITIES: No edema bilaterally. NEUROLOGIC: Cranial nerves 2-12 grossly intact. PSYCHIATRIC: Calm. TELEMETRY: V paced rhythm with underlying atrial fibrillation Assessment/Plan: ASSESSMENT: [ Acute on chronic systolic and diastolic congestive heart failure HFrEF (LVEF25 to 30% 02/18/2025) POA Nonischemic cardiomyopathy, status post prior [place] scientific AICD placement 2015 POA Paroxysmal atrial fibrillation POA Acute dehydration POA Chronic left bundle branch block POA Pacemaker dependent POA Multifactorial anemia POA Normal coronary arteries by prior catheterization 2015 Uncontrolled Hypertension POA Hyperlipidemia POA BPH POA Allergic rhinitis] Home Medications: Reported Medications Clonazepam (Clonazepam) 0.5 Mg Tablet, 1 TAB PO HS 02/18/25 Losartan Potassium (Losartan Potassium) 100 Mg Tablet, 100 MG PO DAILY, TAB 02/18/25 Loratadine (Loratadine) 10 Mg Tablet, 10 MG PO DAILY, TAB 02/18/25 Montelukast Sodium (Montelukast Sodium) 10 Mg Tablet, 10 MG PO HS, TAB 02/18/25 Atorvastatin Calcium (Atorvastatin Calcium) 20 Mg Tablet, 20 MG PO DAILY, TAB 01/12/16 Carvedilol (Carvedilol) 6.25 Mg Tablet, 6.25 MG PO BID, TAB 01/12/16 Finasteride (Finasteride) 5 Mg Tablet, 0.5 TAB PO DAILY, TAB 01/12/16 Aspirin (ASPIRIN 81 MG ECTAB) 81 Mg Ectab, 81 MG PO DAILY, TAB.EC 10/28/15 Tamsulosin HCl (Tamsulosin HCl) 0.4 Mg Cap.er.24h, 0.4 MG PO DAILY, CAPSULE. 10/28/15 Discontinued Reported Medications Omeprazole (Omeprazole) 40 Mg Capsule.dr, 40 MG PO DAILY, CAP 01/12/16 Docusate Sodium (Colace) 100 Mg Capsule, 100 MG PO BID, CAP 10/28/15 Chlorpheniramine Maleate (Chlortabs) 4 Mg Tablet, 4 MG PO HS, TAB 10/28/15 Losartan Potassium (Losartan Potassium) 50 Mg Tablet, 50 MG PO BID, TAB 10/28/15 Pravastatin Sodium (Pravastatin Sodium) 20 Mg Tablet, 20 MG PO HS, TAB 10/28/15 Discontinued Scripts Diclofenac Sodium (Voltaren Arthritis Pain) 1 % Gel..gram., 4 GM TP BID for 7 Days, #1 TUBE Prov:CLIFFORD FABIAN MD 12/25/24 Acetaminophen with Codeine (Tylenol with Codeine #3) 1 Tab Tab, 1 TAB PO Q6H, #30 TAB 0 Refills Prov:ANGELA SINGLETARY MD 01/14/16 Time spent arranging discharge: 31-60 minutes ATTESTATION BY PHYSICIAN I have seen and examined the patient. I reviewed the documentation, medical decision making, and treatment plan as noted by the mid-level provider above. I agree with the findings and plan of care. LEON WALLER MD, KATARZYNA B TERMINAL CLERK Feb 20, 2025 15:34
[2025-02-20] MEDS ORDERED: furoSEMIDE 40 MG TABLET PO SCH (16:00)
== END 2025-02-20 17:08 | disposition home or self-care (01) | DRG 291 ==
LOC: EDH 03:49 → EDHIP 06:47 → 3CH 21:39
PROVIDERS: ADMIT Internal Medicine; ATTEND Internal Medicine
DX: I11.0 Hypertensive heart disease with heart failure (principal); I50.43 Acute on chronic combined systolic (congestive) and diastolic (congestive) heart failure; I48.21 Permanent atrial fibrillation; N17.9 Acute kidney failure, unspecified; I42.8 Other cardiomyopathies; D64.9 Anemia, unspecified; E78.5 Hyperlipidemia, unspecified; E86.0 Dehydration; I44.7 Left bundle-branch block, unspecified; J30.9 Allergic rhinitis, unspecified; N40.0 Benign prostatic hyperplasia without lower urinary tract symptoms; T50.2X5A Adverse effect of carbonic-anhydrase inhibitors, benzothiadiazides and other diuretics, initial encounter; Z86.711 Personal history of pulmonary embolism; Z79.82 Long term (current) use of aspirin; Z95.810 Presence of automatic (implantable) cardiac defibrillator; Z79.84 Long term (current) use of oral hypoglycemic drugs; Z79.899 Other long term (current) drug therapy; Z98.41 Cataract extraction status, right eye; Z98.42 Cataract extraction status, left eye; Y92.89 Other specified places as the place of occurrence of the external cause
CPT/HCPCS: 36415; 71045; 71270; 76376; 80048; 80053; 80076; 81001; 82140; 82150; 82550; 82948; 83036; 83605; 83690; 83735; 83880; 84145; 84484; 85025; 85378; 87426; 87804; 87880; 93005; 93306; 93356; 97161; 99285; G0378; J1644; J1650; J1938; J3475; J3490; Q9967

== ENCOUNTER 2025-05-28 06:49 | Day surgery (SDC) | payer OTHER ==
[2025-05-26 10:27] LABS: IMMATURE GRANULOCYTE ABSOLUTE 0.02 K/uL (0-1); NUCLEATED RED BLOOD CELLS 0.0 % (0.0-0.19); PLATELET COUNT (AUTO) 109 K/uL (130-400); RED BLOOD CELL COUNT(AUTO) 4.16 MIL/uL (4.50-6.20); RED CELL DISTRIBUTION WIDTH 14.5 % (11.0-15.5); WHITE BLOOD COUNT (AUTO) 5.3 K/uL (4.8-10.8)
[2025-05-26 10:33] LABS: CREATININE 1.3 mg/dL (0.5-1.3); GLOMERULAR FILTR. RATE CALC 54.0 mL/min (>90); GLUCOSE,RANDOM 88.0 mg/dL (70-105); SODIUM SERUM 138.0 mmol/L (136-145); UREA NITROGEN, BLOOD 25.0 mg/dL (7-18)
[2025-05-26 11:04] VITALS: BP 136/71; PULSE 60; RESP 13; TEMP 97.5
[~2025-05-28] VITALS: Ht 65 cm; Wt 66.6 kg
[~2025-05-28 06:49] MED LIST changes: +AMIO200T44 PO; +APIX5TAB PO; -CHLO-204 PO; -DICL20GE TP; -DOCU-116 PO; +EMPA10TA PO; +LORA10TA7 PO; +LOSA100T59 PO; -LOSA50TA64 PO; +MONT-39 PO; -OMEP40CA21 PO; -PRAV20TA59 PO; +SPIR25TA6 PO; -TYL3 PO
[2025-05-28 07:05] VITALS: BP 106/64; PULSE 72; RESP 15; TEMP 97.6
[2025-05-28] MEDS ORDERED: LIDOCAINE PF 100MG/5ML (2%) SYRINGE 5ML ONE (09:06)
--- NOTE | 2025-05-28 09:29 | NUR ---
PT SYNCHRONIZED CARDIOVERTED [address] HAYDER LEVIN VSS. SUCCESSFUL
--- NOTE | 2025-05-28 09:36 | NUR ---
PT AWAKE SPEAKING WITH STAFF NADINE LEVIN.
[2025-05-28 09:40] VITALS: BP 101/60; PULSE 61; RESP 15
[2025-05-28 09:55] VITALS: BP 113/64; PULSE 60; RESP 14
[2025-05-28 10:10] VITALS: BP 110/62; PULSE 60; RESP 14
[2025-05-28 10:25] VITALS: BP 116/68; PULSE 60; RESP 15
--- NOTE | 2025-05-28 10:25 | NUR ---
BOTH PT AND SPOUSE WERE GIVEN VERBAL AND WRITTEN DISCHARGE INSTRUCTIONS IV REMOVED SITE ASYMPTOMATIC PT TAKEN OUT VIA WHEELCHAIR
--- NOTE | 2025-05-28 12:59 | EKG ---
[facility] Test Date: 2025-05-28 Test Time: 09:30:30 Pat Name: ANATOLIY FRANCE Department: [facility] Room: [facility] Gender: M Electrolysist: [id number] : 1940 Requested By: ANGELA SINGLETARY Order Number: [id number] Reading MD: Linette Calloway Measurements Intervals [place] Rate: 60 P: 16 IA: 130 QRS: 117 QRSD: 206 T: -58 QT: 531 QTc: 531 Interpretive Statements Atrial-ventricular dual-paced rhythm Biventricular paced rhythm Compared to ECG 04/23/2025 08:51:42 Atrial-sensed ventricular-paced complex(es) or rhythm no longer present Electronically Signed On 05-30-2025 08:38:53 CDT by Linette Calloway Please click the below link to view image of tracing.
--- NOTE | 2025-05-28 14:38 | EKG ---
[facility] Test Date: 2025-05-28 Test Time: 06:52:20 Pat Name: ANATOLIY FRANCE Department: [facility] Room: Gender: M Passenger Flagman: [id number] : 1940 Requested By: ANGELA SINGLETARY Order Number: [id number] Reading MD: Linette Calloway Measurements Intervals [place] Rate: 70 P: 0 MN: 0 QRS: 110 QRSD: 186 T: -54 QT: 480 QTc: 519 Interpretive Statements Afib/flutter and ventricular-paced rhythm Biventricular paced rhythm Compared to ECG 04/23/2025 08:51:42 Atrial-sensed ventricular-paced complex(es) or rhythm no longer present Electronically Signed On 05-30-2025 08:35:23 CDT by Linette Calloway Please click the below link to view image of tracing.
--- NOTE | 2025-06-11 12:47 | PRN ---
Procedure Note Date of procedure: 05/28/2025 Diagnosis: Persistent atrial fibrillation Procedure: Cardioversion Physician: Chad Singletary MD The patient was brought to the day patient area in a fasting state. Anesthesia was provided by the anesthesia service. Cardioversion was performed with a synchronized shock at 200 joules resulting in sinus rhythm. The patient tolerated the procedure well. The patient's device was interrogated and reprogrammed prior to and following cardioversion. Final diagnosis: Persistent atrial fibrillation, status post successful cardioversion Disposition: The patient will be discharged later today and will follow up with me in the office in approximately two weeks. CHAD SINGLETARY MD Jun 11, 2025 12:47
== END 2025-05-28 10:25 ==
LOC: DAH 06:49
PROVIDERS: ATTEND Internal Medicine Cardiovascular Disease
DX: I48.19 Other persistent atrial fibrillation (principal); I42.8 Other cardiomyopathies; I10 Essential (primary) hypertension; E78.5 Hyperlipidemia, unspecified; N40.0 Benign prostatic hyperplasia without lower urinary tract symptoms; Z83.3 Family history of diabetes mellitus; Z79.899 Other long term (current) drug therapy; Z98.890 Other specified postprocedural states
CPT/HCPCS: 80048; 85025; 36415; 92960; 93287 ×2; 93005 ×2; A4223 ×3; J2003; J2704; A4620; A4215; A4222; A4221; A4663; A4216; A4606; 93280; J3490

== ENCOUNTER → 2025-08-15 | Outpatient (CLI) | payer OTHER ==
--- NOTE | 2025-08-15 20:19 | HMCIMG ---
EXAM: Renal ultrasound. CLINICAL HISTORY: Elevated prostate-specific antigen. COMPARISON: Compared with the prior renal ultrasound study dated 04/21/2025 TECHNIQUE: King-scale and color Doppler ultrasound evaluation of the kidneys, urinary bladder, and prostate was performed. FINDINGS: The right kidney measures 10.4 x 4.1 x 5.0 cm and now demonstrates moderate hydronephrosis, which is new compared with the prior study, where the right kidney measured 9 x 4 x 5 cm and appeared within normal limits. The left kidney measures 11.9 x 5.7 x 5.4 cm and now demonstrates moderate hydronephrosis, which is new compared with the prior study, where the left kidney measured 10 x 5 x 4 cm and appeared within normal limits. The urinary bladder is partially filled, and the bladder wall measures 8 mm. The prior bladder wall measurement was 2 mm, representing an interval increase in wall thickness. The prostate measures 9.8 x 5.9 x 9.1 cm with a calculated volume of 276 cc and appears markedly enlarged and heterogeneous. The prior prostate measured 6 x 4 x 5 cm with microcalcifications. This represents a significant interval increase in prostate size. IMPRESSION: 1. New moderate bilateral hydronephrosis compared with the prior study from April 21, 2025. 2. Marked interval enlargement of the prostate, now measuring 276 cc, likely contributing to urinary bladder outlet obstruction. 3. Interval increase in urinary bladder wall thickness, suggestive of chronic outlet obstruction. 4. Findings are consistent with progressive obstructive uropathy. Clinical and urologic correlation recommended. /Shannon
== END | disposition home or self-care (01) ==
LOC: RAH 14:36
PROVIDERS: ATTEND Nurse Practitioner Family
DX: N40.0 Benign prostatic hyperplasia without lower urinary tract symptoms (principal); N13.30 Unspecified hydronephrosis; R97.20 Elevated prostate specific antigen [PSA]; R31.9 Hematuria, unspecified
CPT/HCPCS: 76770